=== PATIENT | female | born 1970 | race African-American/Black ===

== ENCOUNTER → 2016-03-31 | Outpatient (CLI) | payer OTHER ==
[~2016-03-31] VITALS: Ht 154.9 cm; Wt 52.2 kg
[~2016-03-31] MED LIST: AMIT25TA PO; AMLO10TA2 PO; AMLO10TAB; CALC500T49 PO; FENO160T10 PO; FERR325T; FLUT1POW2; HYDR200T3 PO; KAPIDEX; LIDOCAINE 2% INJ 100 MG/5 ML SDV (FOR ANES.) As Ordered ONE; LISI-538 PO; MELO7.5S PO; MELO7.5T6 PO; METO-209 PO; METO50TA4; MOBI7.5T10 PO; MOTR200T44 PO; MULT1TAB10 PO; MULTIVIT; NABU500T; NORT10CA2; NS 1,000 ML IV SCH; OMEP40CA2 PO; PERC5TAB6 PO; PREVMIS; PROPOFOL 200 MG/20 ML VIAL As Ordered ONE; SIMV20TA2; SIMV40TA2 PO; VITMTA PO; VOLT1GEL; VOLT1GEL24 TD; ZOCO20TA PO; fentaNYL 100 MCG/2 ML INJECTION (J3010) As Ordered ONE
--- NOTE | 2016-03-31 13:34 | ROOR ---
Patient Name: Maribeth Devi Procedure Date: 03/31/2016 1:20 PM Date of : 1970 Age: 45 Room: [facility] Gender: Female Note Status: Finalized Procedure: Upper GI endoscopy Indications: Heartburn Providers: Oswaldo Rosenberg MD Referring MD: GUNNAR GARVIN DO Requesting Provider: Medicines: Monitored Anesthesia Care Complications: No immediate complications. Procedure: Pre-Anesthesia Assessment: - The heart rate, respiratory rate, oxygen saturations, blood pressure, adequacy of pulmonary ventilation, and response to care were monitored throughout the procedure. The Endoscope was introduced through the mouth, and advanced to the second part of duodenum. The upper GI endoscopy was accomplished without difficulty. The patient tolerated the procedure well. Findings: The Z-line was regular and was found 35 cm from the incisors. No other significant abnormalities were identified in a careful examination of the stomach. The exam of the duodenum was otherwise normal. Impression: - Z-line regular, 35 cm from the incisors. - No specimens collected. - The examination was otherwise normal. Recommendation: - Patient has a contact number available for emergencies. The signs and symptoms of potential delayed complications were discussed with the patient. Return to normal activities tomorrow. Written discharge instructions were provided to the patient. - Discharge patient to home. - Follow an antireflux regimen. - Continue present medications. - Return to referring physician. - The findings and recommendations were discussed with the patient's family. Oswaldo Rosenberg MD Oswaldo Rosenberg MD 03/31/2016 1:34:30 PM This report has been signed electronically. Number of Addenda: 0 Note Initiated On: 03/31/2016 1:20 PM Estimated Blood Loss: Estimated blood loss: none.
--- NOTE | 2016-03-31 13:47 | ROOR ---
Patient Name: Maribeth Devi Procedure Date: 03/31/2016 1:21 PM Date of : 1970 Age: 45 Room: [facility] Gender: Female Note Status: Finalized Procedure: Colonoscopy to Cecum Indications: Abdominal pain in the left lower quadrant Providers: Oswaldo Rosenberg MD Referring MD: GUNNAR GARVIN DO Requesting Provider: Medicines: Monitored Anesthesia Care Complications: No immediate complications. Procedure: Pre-Anesthesia Assessment: - The heart rate, respiratory rate, oxygen saturations, blood pressure, adequacy of pulmonary ventilation, and response to care were monitored throughout the procedure. The Colonoscope was introduced through the anus and advanced to the cecum, identified by appendiceal orifice and ileocecal valve. The colonoscopy was performed without difficulty. The patient tolerated the procedure well. The quality of the bowel preparation was excellent. Findings: The perianal and digital rectal examinations were normal. Non-bleeding internal hemorrhoids were found during retroflexion. The hemorrhoids were small and Grade I (internal hemorrhoids that do not prolapse). No other significant abnormalities were identified in a careful examination of the remainder of the colon. The exam was otherwise without abnormality on direct and retroflexion views. Impression: - Non-bleeding internal hemorrhoids. - The examination was otherwise normal on direct and retroflexion views. - No specimens collected. - The exam was otherwise normal to the cecum. Recommendation: - Patient has a contact number available for emergencies. The signs and symptoms of potential delayed complications were discussed with the patient. Return to normal activities tomorrow. Written discharge instructions were provided to the patient. - High fiber diet. - Discharge patient to home. - Continue present medications. - Repeat colonoscopy in 10 years for screening purposes. - Return to referring physician. - The findings and recommendations were discussed with the patient's family. Oswaldo Rosenberg MD Oswaldo Rosenberg MD 03/31/2016 1:46:23 PM This report has been signed electronically. Number of Addenda: 0 Note Initiated On: 03/31/2016 1:21 PM Estimated Blood Loss: Estimated blood loss: none.
[2016-03-31 14:07] VITALS: BP 150/102
== END | disposition home or self-care (01) ==
LOC: M OPP 11:01
PROVIDERS: ATTEND Internal Medicine Gastroenterology
DX: R10.32 Left lower quadrant pain (principal); K64.0 First degree hemorrhoids; R12 Heartburn; I10 Essential (primary) hypertension; E78.00 Pure hypercholesterolemia, unspecified; D64.9 Anemia, unspecified; M19.90 Unspecified osteoarthritis, unspecified site; Q87.1 Congenital malformation syndromes predominantly associated with short stature; Z97.4 Presence of external hearing-aid; Z79.899 Other long term (current) drug therapy; Z79.51 Long term (current) use of inhaled steroids; Z91.040 Latex allergy status
CPT/HCPCS: 43235; 45378; 99156; 99157; J3010

== ENCOUNTER → 2016-12-21 | Outpatient (CLI) | payer OTHER ==
[~2016-12-21] MED LIST changes: -LIDOCAINE 2% INJ 100 MG/5 ML SDV (FOR ANES.) As Ordered ONE; -MELO7.5T6 PO; +MELO7.5T7 PO; -METO-209 PO; +METO1TAB33 PO; +MOBI4TAB PO; -MOBI7.5T10 PO; -NS 1,000 ML IV SCH; +PERC5TAB12 PO; -PERC5TAB6 PO; -PROPOFOL 200 MG/20 ML VIAL As Ordered ONE; +VOLT1GEL15 TD; -VOLT1GEL24 TD; -fentaNYL 100 MCG/2 ML INJECTION (J3010) As Ordered ONE
[2016-12-21 18:09] LABS: BASO % 0.2 % (0.0-1.0); EOS % 0.2 % (0.0-3.0); IMMATURE GRANULOCYTE % 0.8 % (0-0); LYMPH # 1.5 10^3/uL (1.5-4.5); MEAN CORPUSCULAR HEMOGLOBIN 32.8 pg (27.0-33.0); MEAN CORPUSCULAR HGB CONC 33.9 g/dl (32.0-36.5); MEAN CORPUSCULAR VOLUME 96.6 fl (80.0-96.0); MONO # 0.9 10^3/uL (0.0-0.8); MONO % 8.9 % (0.0-5.0); NEUTROPHILS # 7.9 10^3/uL (1.8-7.7); NEUTROPHILS % 75.9 % (36.0-66.0); PLATELET COUNT, AUTOMATED 342 10^3/uL (150-450); RED CELL DISTRIBUTION WIDTH 12.7 % (11.5-14.5); WHITE BLOOD COUNT 10.4 10^3/uL (4.0-10.0)
[2016-12-21 18:31] LABS: ERYTHROCYTE SEDIMENTATION RATE 4 mm/hr (0-20)
[2016-12-21 18:47] LABS: ALKALINE PHOSPHATASE 55 U/L (45-117); ALT/SGPT 27 U/L (12-78); ANION GAP 6 MEQ/L (8-16); AST/SGOT 14 U/L (15-37); BILIRUBIN,TOTAL 0.3 MG/DL (0.2-1.0); BLOOD UREA NITROGEN 26 MG/DL (7-18); CALCIUM LEVEL 9.5 MG/DL (8.5-10.1); CARBON DIOXIDE LEVEL 32 MEQ/L (21-32); CHLORIDE LEVEL 101 MEQ/L (98-107); CREATININE FOR GFR 0.91 MG/DL (0.55-1.02); GLOMERULAR FILTRATION RATE > 60.0 (>58); GLUCOSE, FASTING 97 MG/DL (70-105); POTASSIUM SERUM 4.2 MEQ/L (3.5-5.1); SODIUM LEVEL 139 MEQ/L (136-145)
[2016-12-23 14:17] LABS: SJOGREN'S ANTI SS-A >8.0 AI (0.0-0.9); SJOGREN'S ANTI SS-B <0.2 AI (0.0-0.9)
== END ==
LOC: M LAB 16:59
PROVIDERS: ATTEND Internal Medicine Rheumatology
DX: R76.8 Other specified abnormal immunological findings in serum (principal)

== ENCOUNTER → 2017-02-10 | Outpatient (CLI) | payer OTHER ==
--- NOTE | 2017-02-10 15:08 | REPMRS ---
Patient History The patient states she had a clinical breast exam in 01/2017. No known family history of cancer. Digital Woman Screen Mammo: February 10, 2017 - Exam #: [id number] Bilateral CC and MLO view(s) were taken. Technologist: Floridalma Barroso, Technologist Prior study comparison: August 15, 2013, digital woman screen mammo performed at [facility]. August 10, 2012, digital woman screen mammo performed at [facility] to [facility]. November 15, 2011, bilateral digital mammo screening bilat, performed at [facility]. FINDINGS: The breast tissue is heterogeneously dense. This may lower the sensitivity of mammography. There is a moderate amount of heterogeneously dense fibroglandular tissue which is fairly symmetric. There is no interval development of dominant mass, architectural distortion, or clustered microcalcification typical of malignancy. There has been no change in the appearance of the mammogram from the prior studies. ASSESSMENT: BI-RADS/ACR category 1 mammogram. Negative. Recommendation Routine screening mammogram of both breasts in 1 year (for women over age 40). This mammogram was interpreted with the aid of an FDA-approved computer-aided dectection system. Electronically Signed By: Jeromy Hutchinson MD 02/10/17 0975
== END ==
LOC: M WHC 13:26
PROVIDERS: ATTEND Nurse Practitioner Women's Health
DX: Z12.31 Encounter for screening mammogram for malignant neoplasm of breast (principal)

== ENCOUNTER → 2017-11-29 | Outpatient (CLI) | payer OTHER ==
[2017-11-29 16:26] LABS: BASO % 0.7 % (0.0-1.0); EOS # 0.1 10^3/uL (0.0-0.50); EOS % 2.3 % (0.0-3.0); HEMATOCRIT 42.4 % (36.0-47.0); HEMOGLOBIN 14.7 g/dl (12.0-15.5); IMMATURE GRANULOCYTE % 0.2 % (0-3.0); LYMPH # 1.6 10^3/uL (1.5-4.5); MEAN CORPUSCULAR HEMOGLOBIN 32.9 pg (27.0-33.0); MEAN CORPUSCULAR HGB CONC 34.7 g/dl (32.0-36.5); MEAN CORPUSCULAR VOLUME 94.9 fl (80.0-96.0); MONO # 0.5 10^3/uL (0.0-0.8); MONO % 8.1 % (0.0-5.0); NEUTROPHILS # 3.4 10^3/uL (1.8-7.7); NEUTROPHILS % 60.7 % (36.0-66.0); PLATELET COUNT, AUTOMATED 346 10^3/uL (150-450); RED BLOOD COUNT 4.47 10^6/uL (4.00-5.40); RED CELL DISTRIBUTION WIDTH 12.5 % (11.5-14.5); WHITE BLOOD COUNT 5.7 10^3/uL (4.0-10.0)
[2017-11-29 16:47] LABS: ALBUMIN 4.7 GM/DL (3.2-5.2); ALBUMIN/GLOBULIN RATIO 1.31 (1.00-1.93); ALKALINE PHOSPHATASE 75 U/L (45-117); ALT/SGPT 56 U/L (12-78); ANION GAP 7 MEQ/L (8-16); AST/SGOT 36 U/L (7-37); BILIRUBIN,TOTAL 0.3 MG/DL (0.2-1.0); BLOOD UREA NITROGEN 13 MG/DL (7-18); CALCIUM LEVEL 9.9 MG/DL (8.5-10.1); CARBON DIOXIDE LEVEL 31 MEQ/L (21-32); CHLORIDE LEVEL 104 MEQ/L (98-107); CREATININE FOR GFR 0.68 MG/DL (0.55-1.30); GLOMERULAR FILTRATION RATE > 60.0 (>58); GLUCOSE, FASTING 107 MG/DL (70-100); POTASSIUM SERUM 3.7 MEQ/L (3.5-5.1); SODIUM LEVEL 142 MEQ/L (136-145); TOTAL PROTEIN 8.3 GM/DL (6.4-8.2)
[2017-11-29 16:49] LABS: SLIDE REVIEW Report; SOURCE PERIPHERAL SMEAR
[2017-11-29 16:50] LABS: REASON FOR REVIEW OTHER
== END ==
LOC: M LAB 15:45
DX: R10.812 Left upper quadrant abdominal tenderness (principal)
CPT/HCPCS: 80053

== ENCOUNTER 2017-12-01 04:10 | Emergency (ER) | payer OTHER ==
[2017-12-01 04:39] LABS: BASO % 0.7 % (0.0-1.0); EOS # 0.2 10^3/uL (0.0-0.50); EOS % 3.5 % (0.0-3.0); HEMATOCRIT 42.3 % (36.0-47.0); HEMOGLOBIN 14.6 g/dl (12.0-15.5); IMMATURE GRANULOCYTE % 0.2 % (0-3.0); LYMPH # 1.5 10^3/uL (1.5-4.5); LYMPH % 32.2 % (24.0-44.0); MEAN CORPUSCULAR HEMOGLOBIN 32.7 pg (27.0-33.0); MEAN CORPUSCULAR HGB CONC 34.5 g/dl (32.0-36.5); MEAN CORPUSCULAR VOLUME 94.8 fl (80.0-96.0); MONO # 0.5 10^3/uL (0.0-0.8); MONO % 10.1 % (0.0-5.0); NEUTROPHILS # 2.4 10^3/uL (1.8-7.7); NEUTROPHILS % 53.3 % (36.0-66.0); PLATELET COUNT, AUTOMATED 323 10^3/uL (150-450); RED BLOOD COUNT 4.46 10^6/uL (4.00-5.40); RED CELL DISTRIBUTION WIDTH 12.5 % (11.5-14.5); WHITE BLOOD COUNT 4.6 10^3/uL (4.0-10.0)
[2017-12-01] MEDS: MORPHINE 4 MG/ML 1ML VIAL/SYRINGE (J2270) IV ×2 (04:48→06:11)
[2017-12-01] MEDS: NS 1,000 ML IV (04:48)
[2017-12-01 04:49] LABS: INR 0.95; PROTHROMBIN TIME 12.8 SECONDS (12.1-14.4)
[2017-12-01 04:50] LABS: PARTIAL THROMBOPLASTIN TIME 24.7 SECONDS (25.4-37.6)
[2017-12-01 05:09] LABS: ALBUMIN 4.3 GM/DL (3.2-5.2); ALKALINE PHOSPHATASE 70 U/L (45-117); ALT/SGPT 46 U/L (12-78); ANION GAP 8 MEQ/L (8-16); AST/SGOT 26 U/L (7-37); BILIRUBIN,DIRECT < 0.1 MG/DL (0.0-0.2); BILIRUBIN,TOTAL 0.4 MG/DL (0.2-1.0); BLOOD UREA NITROGEN 10 MG/DL (7-18); CALCIUM LEVEL 9.4 MG/DL (8.5-10.1); CARBON DIOXIDE LEVEL 31 MEQ/L (21-32); CHLORIDE LEVEL 105 MEQ/L (98-107); CPK CREATINE PHOSPHOKINASE 198 U/L (26-192); CREATININE FOR GFR 0.65 MG/DL (0.55-1.30); GLOMERULAR FILTRATION RATE > 60.0 (>58); GLUCOSE, FASTING 104 MG/DL (70-100); KETONE, URINE AUTO RFX NEGATIVE (NEGATIVE); LEUKOCYTE ESTERASE UR AUTO RFX NEGATIVE (NEGATIVE); LIPASE 151 U/L (73-393); MB/CK RELATIVE INDEX 0.71 (< OR =4); NITRITE, URINE AUTO RFX NEGATIVE (NEGATIVE); POTASSIUM SERUM 3.7 MEQ/L (3.5-5.1); RBC, URINE AUTO RFX 2 /HPF (0-3); SODIUM LEVEL 144 MEQ/L (136-145); SPECIFIC GRAVITY UR AUTO RFX 1.003 (1.002-1.035); SQUAM EPITHELIAL CELL UR AURFX 0 /HPF (0-6); TOTAL PROTEIN 8.2 GM/DL (6.4-8.2); TROPONIN I < 0.02 NG/ML (< 0.10); WBC, URINE AUTO RFX 0 /HPF (0-3)
[2017-12-01] MEDS ORDERED: ISOVUE-370 76% 100ML VIAL (Q9967) As Ordered (05:28)
== END 2017-12-01 07:24 | disposition home or self-care (01) ==
LOC: M ED 04:10
DX: R10.9 Unspecified abdominal pain (principal); R19.7 Diarrhea, unspecified; I10 Essential (primary) hypertension; K21.9 Gastro-esophageal reflux disease without esophagitis; E78.5 Hyperlipidemia, unspecified; M19.90 Unspecified osteoarthritis, unspecified site; Z79.899 Other long term (current) drug therapy; Z91.040 Latex allergy status
CPT/HCPCS: J2270

== ENCOUNTER 2018-01-23 09:27 | Day surgery (SDC) | payer OTHER ==
[2018-01-23] MEDS ORDERED: PROPOFOL 200 MG/20 ML VIAL As Ordered (10:59)
[2018-01-23] MEDS ORDERED: LIDOCAINE 2% INJ 100 MG/5 ML SDV (FOR ANES.) As Ordered (10:59)
[2018-01-23] MEDS ORDERED: fentaNYL 100 MCG/2 ML INJECTION (J3010) As Ordered (11:21)
[2018-01-23] MEDS: NS 1,000 ML IV (12:15)
== END 2018-01-23 12:05 | disposition home or self-care (01) ==
LOC: M OPP 09:27
DX: R12 Heartburn (principal); K44.9 Diaphragmatic hernia without obstruction or gangrene; I10 Essential (primary) hypertension; E78.00 Pure hypercholesterolemia, unspecified; Z91.040 Latex allergy status; Z79.899 Other long term (current) drug therapy
CPT/HCPCS: 43239

== ENCOUNTER → 2018-02-13 | Outpatient (REF) | payer OTHER ==
[~2018-02-13] MED LIST changes: +ALEV220T26 PO; -AMLO10TA2 PO; +AMLO10TA4 PO; +IBUP200C25 PO; +NEXI20CA PO; +SIMV20TA2 PO; +SYST1SOL OU; +VITA100067 PO; +XIID5DRO OP
[2018-02-13 16:43] LABS: FREE T4 1.1 NG/DL (0.76-1.46); THYROID STIMULATING HORMONE 1.14 uIU/ML (0.358-3.740)
== END ==
LOC: M LABDRAW1 15:57
PROVIDERS: ATTEND Nurse Practitioner Family
DX: E04.2 Nontoxic multinodular goiter (principal)

== ENCOUNTER → 2018-02-15 | Outpatient (CLI) | payer OTHER ==
[2018-02-15 14:38] LABS: ALT/SGPT 32 U/L (12-78); BILIRUBIN,DIRECT < 0.1 MG/DL (0.0-0.2); BILIRUBIN,TOTAL 0.2 MG/DL (0.2-1.0); TOTAL PROTEIN 7.8 GM/DL (6.4-8.2)
== END ==
LOC: M LAB 13:30
PROVIDERS: ATTEND Internal Medicine Gastroenterology
DX: R93.3 Abnormal findings on diagnostic imaging of other parts of digestive tract (principal)

== ENCOUNTER → 2018-03-06 | Outpatient (CLI) | payer OTHER ==
[~2018-03-06] MED LIST changes: -AMLO10TA4 PO; +AMLO10TA5 PO; +PROHANCE 279.3MG/ML 5ML VIAL (A9576) As Ordered ONE
--- NOTE | 2018-03-06 19:49 | REP ---
MRI abdomen without and with IV gadolinium: History: Abnormal findings in the liver on previous imaging. Comparison CT study is from December 01, 2017. MR technique: Axial and coronal T1 and T2-weighted scans were obtained including spin echo, fast spin echo, diffusion weighted scans, gradient echo, in and [id number], and dynamically acquired post gadolinium enhanced T1 fat sat images. MRI findings: On the CT study. There are two subcentimeter foci of hypervascular enhancement, one in the right lobe near the dome of the liver and the other in the left lobe near the falciform ligament. T2-weighted MR images show no focal liver lesion. Similarly, pre gadolinium-enhanced T1-weighted scan images show no focal liver nodule or mass lesion. Diffusion-weighted scans are unremarkable. In and out of phase images show no abnormal signal intensity in the liver. Dynamically acquired sequential post gadolinium enhanced images are included. On the arterial phase initial postcontrast sequence, there are three foci of hypervascular enhancement in the liver including the two foci seen on CT and a peripheral subcapsular focus in the posterior segment of the right lobe of the liver. This measures 9 mm in greatest diameter and is the largest focus. There is an equivocal fourth area centrally in the anterior segment right lobe. None of these is visible after the arterial phase postcontrast sequence suggesting transient arteriovenous shunting. There is no evidence of lesion in any of these locations on delayed or equilibrium phase images. No abnormal T1 are T2 signal intensity is seen. Impression: There are multiple small subcentimeter foci of arterial phase hypervascularity in the liver with no abnormal T1 and T2-weighted signal intensity corresponding to these areas. There is prompt washout. Findings suggest nonspecific foci of arteriovenous shunting. Followup study in 6 months suggested. Electronically Signed by Michael Hutchinson MD 03/06/2018 07:51 P
== END ==
LOC: M RAD 16:34
PROVIDERS: ATTEND Internal Medicine Gastroenterology
DX: R93.3 Abnormal findings on diagnostic imaging of other parts of digestive tract (principal)
CPT/HCPCS: 74183; A9576

== ENCOUNTER 2018-04-06 07:51 | Day surgery (SDC) | payer OTHER ==
[~2018-04-06] VITALS: Ht 154.9 cm; Wt 53.1 kg
[~2018-04-06 07:51] MED LIST changes: +LIDOCAINE 2% INJ 100 MG/5 ML SDV (FOR ANES.) As Ordered ONE; +NS 1,000 ML IV ONE; -PROHANCE 279.3MG/ML 5ML VIAL (A9576) As Ordered ONE; +PROPOFOL 200 MG/20 ML VIAL As Ordered ONE
--- NOTE | 2018-04-06 09:27 | ROOR ---
Patient Name: Maribeth Devi Procedure Date: 04/06/2018 9:00 AM Date of : 1970 Age: 47 Room: [facility] Gender: Female Note Status: Finalized Procedure: Colonoscopy Indications: Generalized abdominal pain, Constipation Providers: Gabo DURBIN MD Referring MD: GUNNAR GARVIN DO Requesting Provider: Medicines: Monitored Anesthesia Care Complications: No immediate complications. Procedure: Pre-Anesthesia Assessment: - The heart rate, respiratory rate, oxygen saturations, blood pressure, adequacy of pulmonary ventilation, and response to care were monitored throughout the procedure. The Colonoscope was introduced through the anus and advanced to 10 cm into the ileum. The colonoscopy was performed without difficulty. The patient tolerated the procedure well. The quality of the bowel preparation was good. Findings: The perianal and digital rectal examinations were normal. A 4 mm polyp was found in the sigmoid colon. The polyp was sessile. The polyp was removed with a cold snare. Resection and retrieval were complete. Internal hemorrhoids were found during retroflexion. The hemorrhoids were medium-sized. The exam was otherwise without abnormality on direct and retroflexion views. The terminal ileum appeared normal. Impression: - One 4 mm polyp in the sigmoid colon, removed with a cold snare. Resected and retrieved. - Internal hemorrhoids. - The colon examination was otherwise normal on direct and retroflexion views. - The examined portion of the ileum was normal. - Irritable bowel with constipation (IBS-C) suspected Recommendation: - Repeat colonoscopy in 5 years for surveillance. - Use Lactulose at 2 tbsp PO BID. - Telephone endoscopist for pathology results in 2 weeks. - Your MRI of the liver was benign, however radiologist requests a follow up MRI in 6 months. - Return to my office in 6 months. Gabo Duribn MD Gabo DURBIN MD 04/06/2018 9:26:34 AM This report has been signed electronically. Number of Addenda: 0 Note Initiated On: 04/06/2018 9:00 AM Estimated Blood Loss: Estimated blood loss: none.
[2018-04-06 09:40] VITALS: BP 133/87
== END 2018-04-06 09:53 | disposition home or self-care (01) ==
LOC: M OPP 07:51
PROVIDERS: ATTEND Internal Medicine Gastroenterology
DX: D12.5 Benign neoplasm of sigmoid colon (principal); K64.8 Other hemorrhoids; R10.84 Generalized abdominal pain; K59.00 Constipation, unspecified

== ENCOUNTER → 2018-04-27 | Outpatient (CLI) | payer OTHER ==
[~2018-04-27] MED LIST changes: -LIDOCAINE 2% INJ 100 MG/5 ML SDV (FOR ANES.) As Ordered ONE; -NS 1,000 ML IV ONE; -PROPOFOL 200 MG/20 ML VIAL As Ordered ONE
--- NOTE | 2018-04-28 08:40 | REPMRS ---
Patient History The patient states she had a clinical breast exam in 03/2018. Family history of breast cancer at age 55 in paternal aunt. No Hormone Replacement Therapy Digital Woman Screen Mammo: April 27, 2018 - Exam #: [id number] Bilateral CC and MLO view(s) were taken. Technologist: Floridalma Barroso, Technologist Prior study comparison: February 10, 2017, digital woman screen mammo performed at [facility] to [facility]. August 15, 2013, digital woman screen mammo performed at [facility]. August 10, 2012, digital woman screen mammo performed at [facility]. FINDINGS: The breast tissue is heterogeneously dense. This may lower the sensitivity of mammography. There is a moderate amount of heterogeneously dense fibroglandular tissue which is fairly symmetric. There is no interval development of dominant mass, architectural distortion, or clustered microcalcification typical of malignancy. There has been no change in the appearance of the mammogram from the prior studies. 3-D tomosynthesis shows no additional findings. I am informed by the technologist, that after the examination, the patient related that she is able to self express a brownish discharge from the left breast. Also, there is apparently an old scar in the left areolar region which the patient relates to a previous spider bite. Assessment: BI-RADS/ACR category 0 mammogram, Incomplete. Need additonal imaging evaluation and/or prior mammograms for comparison. Recommendation Ultrasound of the left breast. Because of a history of brownish left breast discharge, subareolar sonography should be considered. The mammogram is negative and unchanged . This patient's Lifetime Breast Cancer RIsk is estimated at 11.7 %. This mammogram was interpreted with the aid of an FDA-approved computer-aided dectection system. Electronically Signed By: Jeromy Hutchinson MD 04/27/18 [id number]
== END ==
LOC: M WHC 14:57
PROVIDERS: ATTEND Nurse Practitioner Women's Health
DX: Z12.31 Encounter for screening mammogram for malignant neoplasm of breast (principal)

== ENCOUNTER → 2018-05-08 | Outpatient (CLI) | payer OTHER ==
--- NOTE | 2018-05-08 19:12 | REP ---
LEFT BREAST ULTRASOUND: 05/08/2018. Comparison: Screening mammogram with tomosynthesis 04/27/2018. Clinical history: At her screening mammogram last month she described a history of brownish left nipple discharge. Therefore subareolar sonography was recommended. Family history of breast cancer in a paternal aunt at age 55. She has no personal history. Findings: Sonographic evaluation of the subareolar region of the right breast was performed per request. There are some dilated ducts in the subareolar region. Largest of these is 2.1 mm with others in the 1 mm range but none of them showing any definite filling defects. Impression: 1. BIRADS ACR category 2 benign finding. No sonographic or mammographic evidence of malignancy. Dilated ducts in the retroareolar zone show no filling defects. I do not have detailed history of the discharge. If she has persistent or prominent brownish or bloody discharge, a ductogram would be warranted. In addition, for persistent finding, surgical consultation should be obtained. If the discharge was self-limited and has not recurred, annual followup screening mammogram. Electronically Signed by Chapincito Gruber MD 05/08/2018 08:10 P
== END ==
LOC: M RAD 14:27
PROVIDERS: ATTEND Nurse Practitioner Women's Health
DX: N64.52 Nipple discharge (principal); Z80.3 Family history of malignant neoplasm of breast

== ENCOUNTER → 2018-06-13 | Outpatient (CLI) | payer OTHER ==
--- NOTE | 2018-06-13 16:10 | REP ---
LEFT KNEE, FIVE VIEWS: HISTORY: Effusion. There is no acute fracture or dislocation. The joint spaces are normal in appearance. IMPRESSION: There is no acute fracture or dislocation. Electronically Signed by Nitin Vargas MD 06/13/2018 04:17 P
== END ==
LOC: M RAD 14:40
PROVIDERS: ATTEND Physician Assistant
DX: M25.462 Effusion, left knee (principal)

== ENCOUNTER → 2018-07-26 | Outpatient (CLI) | payer OTHER ==
[~2018-07-26] MED LIST changes: +CONRAY-43 43% 50ML VIAL (Q9960) As Ordered ONE
--- NOTE | 2018-07-26 12:18 | REP ---
CANCELLED LEFT DUCTOGRAM: 07/26/2018. Comparison: Left breast ultrasound 05/08/2018, bilateral screening mammogram 04/27/2018. Clinical history: Ultrasound done because of patient reported left breast brownish discharge following previous mammogram. Procedure: However, today the patient notes that there is (and has been) bilateral discharge that she is able to express readily. During my observation of her compression of the nipple areolar complex, there were at least four ducts expressing greenish fluid on the left and two on the right. She states that she has had bilateral discharge for some time. Therefore, I did not perform a ductogram due to the bilateral nature of this discharge. The retroareolar ultrasound on 05/08/2018 showed ducts without filling defects. Used some Telfa pads to absorb some of the fluid and immediately sent off to the laboratory for cytologic analysis. Impression: 1. BIRADS ACR category 2 benign. Benign findings with no evidence of malignancy on the previous mammogram and left breast ultrasound. The presence of bilateral symmetric greenish nipple discharge which was not bloody or clear to my direct visual inspection warrants no further mammographic workup. Cytologic analysis pending. 2. Recommend followup mammography 1 year. Electronically Signed by Chapincito Gruber MD 07/26/2018 12:10 P
== END ==
LOC: M RAD 10:48
PROVIDERS: ATTEND Nurse Practitioner Women's Health
DX: N64.52 Nipple discharge (principal); Z53.8 Procedure and treatment not carried out for other reasons

== ENCOUNTER → 2018-08-02 | Outpatient (CLI) | payer OTHER ==
[~2018-08-02] MED LIST changes: -CONRAY-43 43% 50ML VIAL (Q9960) As Ordered ONE
--- NOTE | 2018-08-02 18:04 | REP ---
MRI LEFT KNEE: TECHNIQUE: Axial proton density fat saturation, sagittal proton density T2 STIR, water excitation, coronal proton density, proton density fat saturation. There is a complex tear of the posterior horn of the medial meniscus. There is increased signal centrally in the anterior horn of the lateral meniscus which may represent degenerative signal although there may be some fraying of that portion of the meniscus. The cruciate and collateral ligaments are intact. Extensor mechanism is intact. There is mild global chondromalacia with femoral condyles and tibial plateaus more so medially with a more moderate degree of chondromalacia of the anterior central medial femoral condyle with mild subchondral marrow edema. Medial and lateral patellar retinacula are intact. No other abnormal bone marrow signal is seen. There is a suprapatellar plica. There is a mild to moderate joint effusion. There is no popliteal cyst. IMPRESSION: Complex tear posterior horn medial meniscus. There appears to be mucoid degeneration centrally of the anterior horn of the lateral meniscus with possible fraying. Cruciate and collateral ligaments are intact. 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 Mild to moderate joint effusion. Suprapatellar plica. Unreviewed
== END ==
LOC: M RAD 12:04
PROVIDERS: ATTEND Orthopaedic Surgery Sports Medicine
DX: S83.204A Other tear of unspecified meniscus, current injury, left knee, initial encounter (principal); X58.XXXA Exposure to other specified factors, initial encounter; Y92.89 Other specified places as the place of occurrence of the external cause

== ENCOUNTER → 2018-08-08 | Outpatient (REF) | payer OTHER | LOC: M SFHCWAGY 12:54 | PROVIDERS: ATTEND Nurse Practitioner Women's Health | DX: N64.52 Nipple discharge (principal) ==

== ENCOUNTER → 2018-09-13 | Outpatient (CLI) | payer OTHER ==
[~2018-09-13] MED LIST changes: +PROHANCE 279.3MG/ML 15ML VIAL (A9576) As Ordered ONE
--- NOTE | 2018-09-13 14:26 | REP ---
MRI ABDOMEN AND WITH AND WITHOUT CONTRAST: Multiple sequences obtained in the axial and coronal planes prior to and following the intravenous administration of 15 mL ProHance. Comparison made with a prior study 03/06/2018. Comparison also made with CT abdomen with contrast, 12/01/2017. Precontrast images show focal liver lesion once again. On arterial phase post gadolinium images, there is once again, a tiny subcentimeter focus of arterial phase enhancement at the right dome of the liver. This actually appears less prominent than on the prior CT and MRI. A similar focus is seen more inferiorly in the anterior segment of the right lobe and at the same level peripherally in the posterior segment of the right lobe, there is a small linear capsular area of enhancement with a length of about 7 mm. Tiny subcentimeter peripheral focus of enhancement is seen in the lateral segment of the left lobe on image 41 with the arterial phase images. A tiny focus near the falciform ligament in the left lobe of the liver on image 34 also appears less prominent than on prior studies. Again, these are most consistent with areas of arterial venous shunting and appear to be benign. Once again, the spleen, adrenals, pancreas and kidneys are unremarkable and unchanged. I see no adenopathy or free fluid in the abdomen. IMPRESSION: Subtle tiny foci of arterial phase enhancement throughout the liver are either unchanged or less prominent than on the prior MRI and CT examinations. Findings are compatible with benign arterial venous shunting. Electronically Signed by Nam Jimenez MD 09/16/2018 06:28 P
== END ==
LOC: M RAD 10:27
PROVIDERS: ATTEND Internal Medicine Gastroenterology
DX: R93.3 Abnormal findings on diagnostic imaging of other parts of digestive tract (principal)
CPT/HCPCS: 74183; A9576

== ENCOUNTER → 2019-01-13 | Outpatient (CLI) | payer OTHER ==
[~2019-01-13] MED LIST changes: -OMEP40CA2 PO; +OMEP40CA97 PO; -PROHANCE 279.3MG/ML 15ML VIAL (A9576) As Ordered ONE
--- NOTE | 2019-01-13 10:23 | REP ---
Left rib series: Five views including PA chest. History: Contusion of the left ribs. Comparison chest x-ray: January 26, 2016. Findings: PA chest radiograph shows no evidence of pneumothorax or hydrothorax. Mediastinum is not widened. The aorta is slightly tortuous. Heart is not enlarged. Lung trevizo are clear. Multiple views of the left rib cage show no visible rib fracture or bony destructive lesion. Impression: Negative rib series. No acute disease. Electronically Signed by Michael Hutchinson MD 01/13/2019 10:15 A
== END ==
LOC: M WUC 09:46
PROVIDERS: ATTEND Physician Assistant
DX: S20.222A Contusion of left back wall of thorax, initial encounter (principal); S20.221A Contusion of right back wall of thorax, initial encounter; J06.9 Acute upper respiratory infection, unspecified; X58.XXXA Exposure to other specified factors, initial encounter

== ENCOUNTER → 2019-01-16 | Outpatient (REF) | payer OTHER ==
[2019-01-16 16:07] LABS: BASO % 0.7 % (0.0-1.0); EOS # 0.2 10^3/uL (0.0-0.5); EOS % 3.7 % (0.0-3.0); HEMATOCRIT 38.2 % (36.0-47.0); HEMOGLOBIN 12.8 g/dl (12.0-15.5); LYMPH # 1.5 10^3/uL (1.5-5.0); LYMPH % 26.5 % (24.0-44.0); MEAN CORPUSCULAR HEMOGLOBIN 30.8 pg (27.0-33.0); MEAN CORPUSCULAR HGB CONC 33.5 g/dl (32.0-36.5); MEAN CORPUSCULAR VOLUME 91.8 fl (80.0-96.0); MONO # 0.9 10^3/uL (0.0-0.8); MONO % 15.1 % (0.0-5.0); NEUTROPHILS # 3.1 10^3/uL (1.5-8.5); NEUTROPHILS % 53.6 % (36.0-66.0); PLATELET COUNT, AUTOMATED 336 10^3/uL (150-450); RED BLOOD COUNT 4.16 10^6/uL (4.00-5.40); WHITE BLOOD COUNT 5.7 10^3/uL (4.0-10.0)
[2019-01-16 16:47] LABS: ERYTHROCYTE SEDIMENTATION RATE 25 mm/hr (0-20)
== END ==
LOC: M LABDRAW1 15:16
PROVIDERS: ATTEND Physician Assistant Surgical
DX: Z47.89 Encounter for other orthopedic aftercare (principal)

== ENCOUNTER 2019-03-03 10:17 | Emergency (ER) | payer OTHER ==
[~2019-03-03] VITALS: Ht 152.4 cm; Wt 57.7 kg
[~2019-03-03 10:17] MED LIST changes: -SIMV20TA2 PO; +SIMV20TA22 PO; -SIMV40TA2 PO; +SIMV40TA20 PO
[2019-03-03] MEDS ORDERED: NS 1,000 ML IV ONE (10:45)
[2019-03-03] MEDS ORDERED: LORA-674 (10:50)
[2019-03-03] MEDS ORDERED: RIZA10TA58 (10:50)
[2019-03-03] MEDS ORDERED: LEFL1TAB4 (10:50)
[2019-03-03] MEDS ORDERED: HYDR25TAB (10:50)
[2019-03-03] MEDS ORDERED: B-COCAP7 (10:50)
[2019-03-03] MEDS ORDERED: MAG400TA (10:50)
--- NOTE | 2019-03-03 11:30 | REP ---
Chest x-ray: Two views. History: Abdomen pain . Comparison study: January 13, 2019 . Findings: The lungs are well inflated and free of infiltrate. The pleural angles are sharp. The heart size is normal. Pulmonary vasculature is not increased. No significant bony abnormality is seen. Mild tortuosity of the thoracic aorta is seen. Impression: Negative chest x-ray. Electronically Signed by Michael Hutchinson MD 03/03/2019 11:21 A
[2019-03-03 11:36] LABS: BASO % 0.9 % (0.0-1.0); EOS # 0.2 10^3/uL (0.0-0.5); EOS % 3.3 % (0.0-3.0); HEMATOCRIT 40.7 % (36.0-47.0); HEMOGLOBIN 13.3 g/dl (12.0-15.5); LYMPH # 1.2 10^3/uL (1.5-5.0); LYMPH % 27.1 % (24.0-44.0); MEAN CORPUSCULAR HEMOGLOBIN 30.9 pg (27.0-33.0); MEAN CORPUSCULAR HGB CONC 32.7 g/dl (32.0-36.5); MEAN CORPUSCULAR VOLUME 94.4 fl (80.0-96.0); MONO # 0.5 10^3/uL (0.0-0.8); MONO % 11.8 % (0.0-5.0); NEUTROPHILS # 2.6 10^3/uL (1.5-8.5); NEUTROPHILS % 56.7 % (36.0-66.0); PLATELET COUNT, AUTOMATED 297 10^3/uL (150-450); RED BLOOD COUNT 4.31 10^6/uL (4.00-5.40); WHITE BLOOD COUNT 4.5 10^3/uL (4.0-10.0)
[2019-03-03 12:00] LABS: ALBUMIN 3.8 GM/DL (3.2-5.2); ALT/SGPT 38 U/L (12-78); BILIRUBIN,DIRECT 0.2 MG/DL (0.0-0.2); BILIRUBIN,TOTAL 0.6 MG/DL (0.2-1.0); CK-MB VALUE MASS 3.6 NG/ML (<3.6); CPK CREATINE PHOSPHOKINASE 347 U/L (26-192); LIPASE 171 U/L (73-393); MB/CK RELATIVE INDEX 1.04 (< OR =4); TOTAL PROTEIN 7.9 GM/DL (6.4-8.2); TROPONIN I < 0.02 NG/ML (< 0.10)
[2019-03-03] MEDS ORDERED: ISOVUE-370 76% 100ML VIAL (Q9967) As Ordered ONE (12:03)
[2019-03-03] MEDS ORDERED: KETOROLAC 30 MG/ML VIAL (J1885) IV ONE (13:45)
--- NOTE | 2019-03-03 13:48 | REP ---
CT PULMONARY ANGIOGRAM: With IV contrast. HISTORY: Pleuritic chest pain radiating to the back. Rule out pulmonary embolus. COMPARISON STUDIES: Comparison chest CT study December 01, 2017. CONTRAST DOSE: 75 mL of Isovue [address] TECHNIQUE: Helical scanning is acquired and overlapping 1.5 mm and contiguous 3 mm axial images are reformatted. In addition, maximum intensity projection and multiplanar re-formation images are generated in sagittal and coronal imaging projections. CT PULMONARY ANGIOGRAPHIC FINDINGS: There is good opacification of the pulmonary arterial tree and there is no CT evidence of pulmonary embolus. No evidence of aortic aneurysm or dissection is seen. No pleural or pericardial effusion is appreciated. No infiltrate is appreciated in the lung trevizo. Maximal intensity projection images show no additional abnormality. No filling defect or vessel cutoff is seen. There is minimal linear plate-like atelectasis in the right middle lobe. No bony destructive lesion is seen. The adrenal glands are normal. Visualized upper abdominal structures are unremarkable. IMPRESSION: No CT evidence of pulmonary embolus. Minimal plate-like atelectasis right middle lobe. Otherwise no acute disease. Electronically Signed by Michael Hutchinson MD 03/03/2019 04:09 P
--- NOTE | 2019-03-03 13:49 | REP ---
CT ABDOMEN AND PELVIS WITH IV BUT WITHOUT ORAL CONTRAST: HISTORY: Pleuritic chest pain. Diffuse abdominal pain. Tenderness to palpation. CT CONTRAST DOSE: 100 mL of intravenous Isovue 370. CT FINDINGS: Preliminary air conditioning coil assembler view shows a normal bowel gas pattern. The liver and the spleen are normal in size, homogeneous in texture. No adrenal lesion is seen. No abnormality is noted in the pancreas or the gallbladder. Kidneys enhance symmetrically and are morphologically intact. No hydronephrosis or renal calculus disease is seen. No abdominal wall defect is observed. Normal appendix is seen in the right lower quadrant behind the cecum. Small and large bowel loops are unremarkable. The uterus is surgically absent. No abdominal wall defect is seen. No bony destructive lesion is appreciated. IMPRESSION: No acute abdominal or pelvic abnormality. Status post hysterectomy. Electronically Signed by Michael Hutchinson MD 03/03/2019 04:09 P
[2019-03-03 14:37] LABS: INFLUENZA A AMPLIFICATION NEGATIVE (NEGATIVE); INFLUENZA B AMPLIFICATION NEGATIVE (NEGATIVE)
[2019-03-03 14:42] VITALS: BP 161/92
[2019-03-03] MEDS ORDERED: MOBI4TAB PO (14:48)
[2019-03-03] MEDS ORDERED: ACETAMINOPHEN TAB 650MG DOSE (2X325MG) PO ONE (15:00)
--- NOTE | 2019-03-04 05:52 | ECGEPIP ---
[facility] - ED Test Date: 2019-03-03 Pat Name: PARUL ALEXANDER Department: Room: - Gender: Female Mobile Nurse: ct : 1970 Requested By: NATALIE Linda PA-C Order Number: [id number] Reading MD: Gen Lagunas Measurements Intervals [place] Rate: 75 P: 58 NE: 191 QRS: 9 QRSD: 80 T: -8 QT: 380 QTc: 425 Interpretive Statements SINUS RHYTHM POSSIBLE LEFT ATRIAL ENLARGEMENT VOLTAGE CRITERIA FOR LVH NSTTW ABNORMALITIES SIMILAR TO 12/01/17 Electronically Signed on 03-04-2019 5:52:16 EST by Gen Lagunas
== END 2019-03-03 15:22 | disposition home or self-care (01) ==
LOC: M ED 10:17
DX: E87.6 Hypokalemia (principal); J98.11 Atelectasis; R10.9 Unspecified abdominal pain; R19.7 Diarrhea, unspecified; R11.2 Nausea with vomiting, unspecified; R94.31 Abnormal electrocardiogram [ECG] [EKG]; R51 Headache; I10 Essential (primary) hypertension; E78.5 Hyperlipidemia, unspecified; K21.9 Gastro-esophageal reflux disease without esophagitis; M35.00 Sjogren syndrome, unspecified; Z90.710 Acquired absence of both cervix and uterus; Z91.040 Latex allergy status; Z79.1 Long term (current) use of non-steroidal anti-inflammatories (NSAID); Z79.84 Long term (current) use of oral hypoglycemic drugs; Z79.899 Other long term (current) drug therapy
CPT/HCPCS: 71046; 71275; 74177; 80047; 80076; 81001; 82550; 82553; 83605; 83690; 85025; 87507; 87631; 93005; 96361; 96374; 99284; J1885; Q9967

== ENCOUNTER → 2019-05-01 | Outpatient (CLI) | payer OTHER ==
[~2019-05-01] MED LIST changes: +B-COCAP7; +HYDR25TAB; +LEFL1TAB4; +LORA-674; +MAG400TA; +RIZA10TA58
--- NOTE | 2019-05-01 16:35 | REPMRS ---
Patient History The patient states she had a clinical breast exam in April 2019. Family history of breast cancer at age 55 in paternal aunt. No Hormone Replacement Therapy Digital Woman Screen Mammo: May 01, 2019 - Exam #: [id number] Bilateral CC and MLO view(s) were taken. Technologist: Mindy Castle, Technologist Prior study comparison: April 27, 2018, bilateral digital woman screen mammo performed at [facility]. February 10, 2017, digital woman screen mammo performed at [facility]. August 15, 2013, digital woman screen mammo performed at [facility]. FINDINGS: The breast tissue is heterogeneously dense. This may lower the sensitivity of mammography. There are too stable benign nodular opacities projecting in the upper outer quadrant on the right, unchanged from prior studies. There is a moderate amount of heterogeneously dense fibroglandular tissue which is fairly symmetric. There is no interval development of dominant mass, architectural distortion, or grouped microcalcification typical of malignancy. There has been no change in the appearance of the mammogram from the prior studies. 3-D tomosynthesis shows no additional findings. Assessment: BI-RADS/ACR category 2 mammogram. Benign Findings. Recommendation Routine screening mammogram of both breasts in 1 year (for women over age 40). This patient's Lifetime Breast Cancer RIsk is estimated at 11.6 %. This mammogram was interpreted with the aid of an FDA-approved computer-aided dectection system. Electronically Signed By: Jreomy Hutchinson MD 05/01/19 5028
== END ==
LOC: M WHC 14:54
PROVIDERS: ATTEND Nurse Practitioner Women's Health
DX: Z12.31 Encounter for screening mammogram for malignant neoplasm of breast (principal); D24.1 Benign neoplasm of right breast

== ENCOUNTER → 2019-09-07 | Outpatient (CLI) | payer OTHER ==
[~2019-09-07] MED LIST changes: -AMLO10TA5 PO; +AMLO1TAB25 PO; -B-COCAP7; +B-COCAP7 PO; -LORA-674; +LORA-674 PO; -MAG400TA; +MAG400TA PO; +METF500T13 PO; +MULTCAP PO; -RIZA10TA58; +RIZA10TA58 PO
== END ==
LOC: M LABSMTC 10:03
PROVIDERS: ATTEND Anesthesiology
DX: Z01.818 Encounter for other preprocedural examination (principal); Z11.59 Encounter for screening for other viral diseases
CPT/HCPCS: C9803; U0003

== ENCOUNTER → 2019-11-19 | Outpatient (CLI) | payer OTHER ==
[~2019-11-19] MED LIST changes: +E-Z-GAS II EFFERVESCENT PACKET (SODIUM BICARB./CITRIC ACID/SIMETHICONE) As Ordered ONE; +E-Z-HD 98% w/w 340GM SUSP BTL As Ordered ONE; +E-Z-PAQUE 96% w/w SUSP 176GM BTL As Ordered ONE
--- NOTE | 2019-11-28 07:48 | REP ---
ESOPHAGRAM AIR CONTRAST The procedure was performed under the direct supervision of Dr. Jimenez. The images were reviewed with Dr. Jimenez. A single view PA chest x-ray is submitted as a weld inspector film. There is no change compared to a previous chest x-ray performed on 03/03/2019. Liquid barium and gas-producing granules were given in the erect position, as well as liquid barium in the prone oblique position in order to perform a double-contrast esophagram examination. The oral and pharyngeal stages of deglutition are unremarkable. Esophageal transport is prompt and efficient, and there is no esophagitis, stricture, mucosal ring, or hiatal hernia. There is gastroesophageal reflux demonstrated to the level of the thoracic inlet. IMPRESSION: There is gastroesophageal reflux demonstrated to the level of the thoracic inlet. Otherwise, unremarkable double contrast esophagram examination. 0.5 minutes of fluoroscopy time was utilized for this procedure. [facility] CENTERPatricio
== END ==
LOC: M RAD 07:22
PROVIDERS: ATTEND Nurse Practitioner
DX: R13.10 Dysphagia, unspecified (principal); K21.0 Gastro-esophageal reflux disease with esophagitis

== ENCOUNTER → 2019-11-26 | Outpatient (CLI) | payer OTHER ==
[~2019-11-26] MED LIST changes: -E-Z-GAS II EFFERVESCENT PACKET (SODIUM BICARB./CITRIC ACID/SIMETHICONE) As Ordered ONE; -E-Z-HD 98% w/w 340GM SUSP BTL As Ordered ONE; -E-Z-PAQUE 96% w/w SUSP 176GM BTL As Ordered ONE
[2019-11-26 10:59] LABS: BASO % 0.5 % (0.0-1.0); EOS # 0.2 10^3/uL (0.0-0.5); EOS % 2.8 % (0.0-3.0); HEMATOCRIT 40.4 % (36.0-47.0); HEMOGLOBIN 13.2 g/dl (12.0-15.5); LYMPH # 1.3 10^3/uL (1.5-5.0); MEAN CORPUSCULAR HEMOGLOBIN 30.8 pg (27.0-33.0); MEAN CORPUSCULAR HGB CONC 32.7 g/dl (32.0-36.5); MEAN CORPUSCULAR VOLUME 94.2 fl (80.0-96.0); MONO # 0.6 10^3/uL (0.0-0.8); MONO % 10.4 % (0.0-5.0); NEUTROPHILS # 3.6 10^3/uL (1.5-8.5); NEUTROPHILS % 63.1 % (36.0-66.0); PLATELET COUNT, AUTOMATED 324 10^3/uL (150-450); RED BLOOD COUNT 4.29 10^6/uL (4.00-5.40); WHITE BLOOD COUNT 5.7 10^3/uL (4.0-10.0)
[2019-11-26 11:26] LABS: ALT/SGPT 75 U/L (12-78); BILIRUBIN,TOTAL 0.5 MG/DL (0.2-1.0); BLOOD UREA NITROGEN 11 MG/DL (7-18); CALCIUM LEVEL 10.3 MG/DL (8.5-10.1); CARBON DIOXIDE LEVEL 31 MEQ/L (21-32); CHLORIDE LEVEL 101 MEQ/L (98-107); CREATININE FOR GFR 0.77 MG/DL (0.55-1.30); GLOMERULAR FILTRATION RATE > 60.0 (>51); GLUCOSE, FASTING 117 MG/DL (70-100); POTASSIUM SERUM 3.2 MEQ/L (3.5-5.1); SODIUM LEVEL 138 MEQ/L (136-145); TOTAL PROTEIN 7.8 GM/DL (6.4-8.2)
[2019-11-26 12:23] LABS: ERYTHROCYTE SEDIMENTATION RATE 11 mm/hr (0-30)
[2019-11-27 15:09] LABS: ANTI DOUBLE STRAND-DNA AB <1 IU/mL (0-9); ANTINUCLEAR ANTIBODIES DIRECT Positive (Negative); RNP ANTIBODIES <0.2 AI (0.0-0.9); SJOGREN'S ANTI SS-A >8.0 AI (0.0-0.9); SJOGREN'S ANTI SS-B <0.2 AI (0.0-0.9); SMITH ANTIBODIES <0.2 AI (0.0-0.9)
== END ==
LOC: M LAB 09:17
PROVIDERS: ATTEND Internal Medicine Rheumatology
DX: M35.00 Sjogren syndrome, unspecified (principal); R76.8 Other specified abnormal immunological findings in serum; M17.0 Bilateral primary osteoarthritis of knee

== ENCOUNTER → 2019-11-26 | Outpatient (CLI) | payer OTHER ==
[2019-11-26 10:59] LABS: BASO # 0.1 10^3/uL (0.0-0.2); BASO % 0.9 % (0.0-1.0); EOS # 0.2 10^3/uL (0.0-0.5); EOS % 2.9 % (0.0-3.0); HEMATOCRIT 39.7 % (36.0-47.0); LYMPH # 1.3 10^3/uL (1.5-5.0); LYMPH % 23.5 % (24.0-44.0); MEAN CORPUSCULAR HEMOGLOBIN 30.7 pg (27.0-33.0); MEAN CORPUSCULAR HGB CONC 32.7 g/dl (32.0-36.5); MEAN CORPUSCULAR VOLUME 93.9 fl (80.0-96.0); MONO # 0.6 10^3/uL (0.0-0.8); MONO % 10.9 % (0.0-5.0); NEUTROPHILS # 3.4 10^3/uL (1.5-8.5); NEUTROPHILS % 61.6 % (36.0-66.0); PLATELET COUNT, AUTOMATED 329 10^3/uL (150-450); RED BLOOD COUNT 4.23 10^6/uL (4.00-5.40); WHITE BLOOD COUNT 5.5 10^3/uL (4.0-10.0)
[2019-11-26 11:21] LABS: BLOOD UREA NITROGEN 11 MG/DL (7-18); CALCIUM LEVEL 9.9 MG/DL (8.5-10.1); CARBON DIOXIDE LEVEL 33 MEQ/L (21-32); CHLORIDE LEVEL 102 MEQ/L (98-107); CREATININE FOR GFR 0.82 MG/DL (0.55-1.30); GLOMERULAR FILTRATION RATE > 60.0 (>51); GLUCOSE, FASTING 112 MG/DL (70-100); POTASSIUM SERUM 3.2 MEQ/L (3.5-5.1); SODIUM LEVEL 140 MEQ/L (136-145)
== END ==
LOC: M LAB 09:12
PROVIDERS: ATTEND Family Medicine
DX: Z01.818 Encounter for other preprocedural examination (principal)

== ENCOUNTER → 2019-12-27 | Outpatient (CLI) | payer OTHER ==
--- NOTE | 2019-12-27 14:39 | REP ---
INDICATION: PAIN IN RIGHT WRIST PT AT FILE ROOM. COMPARISON: MRI 08/23/2019 from [facility]. TECHNIQUE: Multiple sequences obtained in the axial, coronal and sagittal planes. FINDINGS: Triangular fibrocartilage: There is a linear tear of the triangular fibrocartilage complex at its insertion onto the radius. Scapholunate and lunatotriquetral ligaments: Intact. Flexor and extensor tendons: Intact. No tenosynovitis. Carpal tunnel region:There is again some degree of anterior bowing of the flexor retinaculum and increased signal in the median nerve unchanged since the prior exam. No ganglion cyst is seen. Joint fluid: No effusion. Distal radioulnar joint: Mild fluid present. Bone marrow: No edema or occult fracture. There is small subchondral cyst in the distal 1st metacarpal. IMPRESSION: Linear tear of the triangular fibrocartilage complex at its insertion onto the radius. Stable anterior bowing of the flexor retinaculum and increased signal in the median nerve. Mild fluid in the distal radioulnar joint. <Electronically signed by Nam Jimenez > 12/27/19 2043
== END ==
LOC: M RAD 12:19
PROVIDERS: ATTEND Orthopaedic Surgery
DX: M25.531 Pain in right wrist (principal)

== ENCOUNTER → 2020-03-05 | Outpatient (CLI) | payer OTHER ==
[~2020-03-05] MED LIST changes: +ATOR40TA75 PO; +D 50CAP2 PO; -HYDR25TAB; +HYDR25TAB PO; -LEFL1TAB4; +LEFL1TAB4 PO; +LUBR0.5D OP; +OMEP1CAP73 PO; +THERTAB52 PO
== END ==
LOC: M LABSMTC 11:27
PROVIDERS: ATTEND Anesthesiology
DX: Z01.812 Encounter for preprocedural laboratory examination (principal); Z20.822 Contact with and (suspected) exposure to COVID-19

== ENCOUNTER 2020-03-10 12:14 | Day surgery (SDC) | payer OTHER ==
[~2020-03-10] VITALS: Ht 154.9 cm; Wt 54.2 kg
[~2020-03-10 12:14] MED LIST changes: -AMIT25TA PO; +AMIT25TA17 PO; +NS 1,000 ML IV ONE
[2020-03-10] MEDS ORDERED: fentaNYL 100 MCG/2 ML INJECTION (J3010) As Ordered ONE (13:22)
--- NOTE | 2020-03-10 14:40 | ROOR ---
Patient Name: Maribeth Devi Procedure Date: 03/10/2020 2:18 PM Date of : 1970 Age: 49 Room: [facility] Gender: Female Note Status: Finalized Procedure: Upper GI endoscopy Indications: Oropharyngeal phase dysphagia, Esophageal dysphagia, Suspected esophageal reflux Providers: Gabo DURBIN MD Referring MD: GUNNAR GARVIN DO Requesting Provider: Medicines: Monitored Anesthesia Care Complications: No immediate complications. Procedure: Pre-Anesthesia Assessment: - The heart rate, respiratory rate, oxygen saturations, blood pressure, adequacy of pulmonary ventilation, and response to care were monitored throughout the procedure. The Endoscope was introduced through the mouth, and advanced to the second part of duodenum. The upper GI endoscopy was accomplished without difficulty. The patient tolerated the procedure well. Findings: The examined esophagus was normal. This was biopsied with a cold forceps for evaluation of eosinophilic esophagitis. The scope was withdrawn. Dilation was performed with a Davis dilator with mild resistance at 50 Fr. The dilation site was examined and showed no change. A small amount of food (residue) was found in the gastric body. The entire examined stomach was normal. The examined duodenum was normal. Impression: - Normal esophagus. Biopsied. Dilated. - A small amount of food or medication/pills (residue) in the stomach. - Normal stomach. - Normal examined duodenum. Recommendation: - Observe patient's clinical course. - Gastroparesis diet: - Eat smaller, more frequent meals throughout the day. - Low fat diet. - Liquid/soft foods are tolerated better than solid foods. - Low fiber/well cooked vegetables are tolerated better than high fiber/fibrous foods/raw vegetables. - Avoid medications that inhibit gastric/intestinal motility such as narcotic medications. - Continue present medications. Procedure Code(s): --- Professional --- 94252, Esophagogastroduodenoscopy, flexible, transoral; with biopsy, single or multiple 46615, Dilation of esophagus, by unguided sound or bougie, single or multiple passes Diagnosis Code(s): --- Professional --- R13.14, Dysphagia, pharyngoesophageal phase R13.12, Dysphagia, oropharyngeal phase CPT copyright 2019 [employer]. All rights reserved. The codes documented in this report are preliminary and upon professor of chemistry review may be revised to meet current compliance requirements. Gabo Durbin MD Gabo DURBIN MD 03/10/2020 2:40:28 PM Electronically signed by Gabo DURBIN MD Number of Addenda: 0 Note Initiated On: 03/10/2020 2:18 PM Estimated Blood Loss: Estimated blood loss: none.
[2020-03-10 15:14] VITALS: BP 140/80
== END 2020-03-10 15:19 | disposition home or self-care (01) ==
LOC: M OPP 12:14
PROVIDERS: ATTEND Internal Medicine Gastroenterology
DX: R13.12 Dysphagia, oropharyngeal phase (principal); R13.14 Dysphagia, pharyngoesophageal phase; K21.9 Gastro-esophageal reflux disease without esophagitis; D13.0 Benign neoplasm of esophagus; I10 Essential (primary) hypertension; E78.5 Hyperlipidemia, unspecified; E11.9 Type 2 diabetes mellitus without complications; R12 Heartburn; M19.90 Unspecified osteoarthritis, unspecified site; G43.909 Migraine, unspecified, not intractable, without status migrainosus; L93.0 Discoid lupus erythematosus; B19.10 Unspecified viral hepatitis B without hepatic coma; F41.9 Anxiety disorder, unspecified; Z91.040 Latex allergy status; Z91.041 Radiographic dye allergy status; Z79.84 Long term (current) use of oral hypoglycemic drugs; Z79.899 Other long term (current) drug therapy; Z82.49 Family history of ischemic heart disease and other diseases of the circulatory system; Z82.69 Family history of other diseases of the musculoskeletal system and connective tissue; Z82.3 Family history of stroke; Z80.3 Family history of malignant neoplasm of breast
CPT/HCPCS: 43239; 43450; 88305; J3010

== ENCOUNTER → 2020-05-05 | Outpatient (CLI) | payer OTHER ==
[~2020-05-05] MED LIST changes: +HYDR-3490 PO; -HYDR25TAB PO; -LISI-538 PO; +LISI20TA33 PO; -MAG400TA PO; +MAGN400T35 PO; -NS 1,000 ML IV ONE
--- NOTE | 2020-05-06 07:20 | REPMRS ---
Patient History The patient states she had a clinical breast exam in April 2020. Family history of breast cancer at age 55 in paternal aunt. No Hormone Replacement Therapy Digital Woman Screen Mammo: May 05, 2020 - Exam #: [id number] Bilateral CC and MLO view(s) were taken. Technologist: RT Nico Prior study comparison: May 01, 2019, bilateral digital woman screen mammo performed at [facility]. April 27, 2018, bilateral digital woman screen mammo performed at [facility]. February 10, 2017, digital woman screen mammo performed at [facility]. FINDINGS: The breast tissue is heterogeneously dense. This may lower the sensitivity of mammography. The Volpara volumetric breast density category is: C. There is a moderate amount of heterogeneously dense fibroglandular tissue which is fairly symmetric. There is no interval development of dominant mass, architectural distortion, or grouped microcalcification typical of malignancy. There has been no change in the appearance of the mammogram from the prior studies. 3-D tomosynthesis shows no additional findings. Assessment: BI-RADS/ACR category 1 mammogram. Negative Mammogram. Recommendation Routine screening mammogram of both breasts in 1 year (for women over age 40). This patient's [facility] Lifetime Breast Cancer RIsk is estimated at 11.4 %. This mammogram was interpreted with the aid of an FDA-approved computer-aided dectection system. Electronically Signed By: Jeromy Hutchinson MD 05/05/20 0373
== END ==
LOC: M WHC 14:12
PROVIDERS: ATTEND Nurse Practitioner Women's Health
DX: Z12.31 Encounter for screening mammogram for malignant neoplasm of breast (principal)

== ENCOUNTER → 2020-07-07 | Outpatient (CLI) | payer OTHER ==
--- NOTE | 2020-07-07 13:31 | REP ---
INDICATION: PAIN. COMPARISON: None. TECHNIQUE: AP, lateral, open mouth views of the cervical spine. FINDINGS: Alignment and lordosis maintained. No acute fracture/compression injury or subluxation. Moderate focal degenerative change at C6-7 includes endplate sclerosis with anterior osteophytosis and minimal disc space narrowing. IMPRESSION: Moderate focal degenerative changes at C6-7. <Electronically signed by Jared Casas > 07/07/20 [id number]
--- NOTE | 2020-07-07 13:33 | REP ---
INDICATION: PAIN. COMPARISON: None. TECHNIQUE: Internal rotation, external rotation, axillary and Y-view of the left and right shoulder. FINDINGS: Left shoulder demonstrates mild cortical irregularity at the acromioclavicular joint. The subacromial space is normal. Glenohumeral joint is normal. No periarticular calcifications or loose bodies are identified. No acute fracture or dislocation. Right shoulder demonstrates cortical irregularity at the acromioclavicular joint. The subacromial space is normal. Glenohumeral joint is normal. No periarticular calcifications or loose bodies are identified. No acute fracture or dislocation. IMPRESSION: Mild degenerative changes at the bilateral acromioclavicular joints. <Electronically signed by Jared Casas > 07/07/20 [id number]
== END ==
LOC: M SOG 10:49
PROVIDERS: ATTEND Orthopaedic Surgery Sports Medicine
DX: M75.41 Impingement syndrome of right shoulder (principal); M75.42 Impingement syndrome of left shoulder; M50.323 Other cervical disc degeneration at C6-C7 level

== ENCOUNTER 2020-07-10 12:22 | Emergency (ER) | payer OTHER ==
[~2020-07-10] VITALS: Ht 165.1 cm; Wt 51.1 kg
[2020-07-10] MEDS ORDERED: LEFL1TAB4 PO (13:19)
[2020-07-10] MEDS ORDERED: OMEP-218 PO (13:19)
[2020-07-10] MEDS ORDERED: DICL1GEL3 TOP (13:19)
[2020-07-10] MEDS ORDERED: MELO7.5T35 PO (13:19)
[2020-07-10] MEDS ORDERED: IBUP200C25 PO (13:19)
[2020-07-10] MEDS ORDERED: ACET-910 PO (13:19)
[2020-07-10] MEDS ORDERED: NS 1,000 ML IV ONE (14:35)
--- NOTE | 2020-07-10 15:08 | REPVR ---
PROCEDURE INFORMATION: Exam: CT Head Without Contrast Exam date and time: 07/10/2020 2:35 PM Age: 50 years old Clinical indication: Pain; Headache; Additional info: Headache x 5 wks TECHNIQUE: Imaging protocol: Computed tomography of the head without contrast. Radiation optimization: All CT scans at this facility use at least one of these dose optimization techniques: automated exposure control; mA and/or kV adjustment per patient size (includes targeted exams where dose is matched to clinical indication); or iterative reconstruction. COMPARISON: No relevant prior studies available. FINDINGS: Brain: Normal. No hemorrhage. Unremarkable white matter. No mass effect. Cerebral ventricles: No ventriculomegaly. Bones/joints: Unremarkable. No acute fracture. Paranasal sinuses: Visualized sinuses are unremarkable. No fluid levels. Mastoid air cells: Visualized mastoid air cells are well aerated. Soft tissues: Unremarkable. IMPRESSION: No acute intracranial abnormality. Electronically signed by: Arnoldo Renteria On 07/10/2020 15:08:17 PM
--- NOTE | 2020-07-10 15:11 | REPVR ---
PROCEDURE INFORMATION: Exam: CT Cervical Spine Without Contrast Exam date and time: 07/10/2020 2:35 PM Age: 50 years old Clinical indication: Pain; Other: Headache; Additional info: Headache x 5 wks TECHNIQUE: Imaging protocol: Computed tomography images of the cervical spine without contrast. Radiation optimization: All CT scans at this facility use at least one of these dose optimization techniques: automated exposure control; mA and/or kV adjustment per patient size (includes targeted exams where dose is matched to clinical indication); or iterative reconstruction. COMPARISON: CR SPINE CERVICAL AP/LAT 07/07/2020 10:53 AM FINDINGS: Bones/joints: There is a reversal of the normal lordosis, related to positioning or spasm. Discs/Spinal canal/Neural foramina: There is ossification of the posterior longitudinal ligament (OPLL) at the posterior surfaces of C5, C6, and C7 with spinal canal dimensions 10, 8.8, and 8.5 mm. There is no nerve root compression. Thyroid: The thyroid gland is normal. Lungs: The visualized portions of the lung apices are normal. Soft tissues: Unremarkable. IMPRESSION: 1. There is a reversal of the normal lordosis, related to positioning or spasm. 2. There is ossification of the posterior longitudinal ligament (OPLL) at the posterior surfaces of C5, C6, and C7 with spinal canal dimensions 10, 8.8, and 8.5 mm. 3. There is no nerve root compression. Electronically signed by: Arnoldo Renteria On 07/10/2020 15:11:30 PM
[2020-07-10 16:44] LABS: BASO % 0.7 % (0.0-1.0); EOS # 0.1 10^3/uL (0.0-0.5); EOS % 3.2 % (0.0-3.0); HEMATOCRIT 44.5 % (36.0-47.0); HEMOGLOBIN 14.6 g/dl (12.0-15.5); LYMPH # 1.7 10^3/uL (1.5-5.0); LYMPH % 38.5 % (24.0-44.0); MEAN CORPUSCULAR HEMOGLOBIN 30.9 pg (27.0-33.0); MEAN CORPUSCULAR HGB CONC 32.8 g/dl (32.0-36.5); MEAN CORPUSCULAR VOLUME 94.3 fl (80.0-96.0); MONO # 0.5 10^3/uL (0.0-0.8); MONO % 12.2 % (2.0-8.0); RED BLOOD COUNT 4.72 10^6/uL (4.00-5.40); WHITE BLOOD COUNT 4.4 10^3/uL (4.0-10.0)
[2020-07-10 17:07] LABS: BLOOD UREA NITROGEN 15 MG/DL (7-18); CALCIUM LEVEL 10.3 MG/DL (8.5-10.1); CARBON DIOXIDE LEVEL 26 MEQ/L (21-32); CHLORIDE LEVEL 106 MEQ/L (98-107); CK-MB VALUE MASS < 1.0 NG/ML (<3.6); CPK CREATINE PHOSPHOKINASE 164 U/L (26-192); CREATININE FOR GFR 0.82 MG/DL (0.55-1.30); FREE T4 1.06 NG/DL (0.76-1.46); GLOMERULAR FILTRATION RATE > 60.0 (>51); GLUCOSE, FASTING 88 MG/DL (70-100); MAGNESIUM LEVEL 2.1 MG/DL (1.8-2.4); MB/CK RELATIVE INDEX 0.61 (< OR =4); POTASSIUM SERUM 3.5 MEQ/L (3.5-5.1); SODIUM LEVEL 139 MEQ/L (136-145); TROPONIN I < 0.02 NG/ML (< 0.10)
[2020-07-10 17:24] LABS: INR 0.92; PARTIAL THROMBOPLASTIN TIME 22.6 SECONDS (24.2-38.5); PROTHROMBIN TIME 12.6 SECONDS (12.5-14.3)
[2020-07-10 17:27] LABS: D-DIMER QUANT 532.78 ng/ml (<500)
[2020-07-10 17:39] LABS: NEUTROPHILS % 45.2 % (36.0-66.0)
[2020-07-10] MEDS ORDERED: MAG SULF 1GM/100ML (MAG RUN) 1 GM in IV 1 EA IV ONE (18:00)
[2020-07-10] MEDS ORDERED: dexameTHASONE 20MG/5ML VIAL (J1100 PER 1MG) IV ONE (18:00)
--- NOTE | 2020-07-10 21:20 | REPVR ---
PROCEDURE INFORMATION: Exam: MR Cervical Spine Without Contrast Exam date and time: 07/10/2020 8:44 PM Age: 50 years old Clinical indication: Neck pain; Additional info: Headache x 5 weeks TECHNIQUE: Imaging protocol: Multiplanar magnetic resonance images of the cervical spine without contrast. COMPARISON: CT Spine,cervical w/o contrast 07/10/2020 2:48 PM FINDINGS: Vertebrae: Reversal of cervical lordosis. Spinal cord: Normal signal. No cord compression. C2-C3: No significant disc disease. No significant spinal stenosis. C3-C4: No significant disc disease. No significant spinal stenosis. C4-C5: No significant disc disease. No significant spinal stenosis. C5-C6: Diffusely bulging annulus C5-C6 effaces ventral subarachnoid space without cord impingement. There is mild to moderate foraminal narrowing on the left. C6-C7: Diffusely bulging annulus and right paracentral disc protrusion C6-C7 effaces the ventral subarachnoid space with moderate right cornelius cord impingement. There is moderate to severe bilateral foraminal stenosis. C7-T1: No significant disc disease. No significant spinal stenosis. Soft tissues: Unremarkable. Vertebral arteries: Expected flow voids in the vertebral arteries. IMPRESSION: 1. Degenerative changes with a diffusely bulging annulus at C5-C6 without cord impingement. There is a diffusely bulging annulus at C6-C7 with a right posterior paracentral disc protrusion resulting in moderate right cornelius cord impingement. 2. There is mild to moderate foraminal narrowing on the left at C5-C6 and bilateral moderate to severe foraminal narrowing at C6-C7. Electronically signed by: Isaias Munguia On 07/10/2020 21:19:28 PM
--- NOTE | 2020-07-10 21:21 | REPVR ---
PROCEDURE INFORMATION: Exam: MR Head Without Contrast Exam date and time: 07/10/2020 8:44 PM Age: 50 years old Clinical indication: Pain; Headache; Migraine; Aura effect not specified; Does not respond to medication; With migrainosus (>72 hrs & severe); Additional info: Headache x 5 weeks TECHNIQUE: Imaging protocol: MR of the head without contrast. COMPARISON: CT Head without contrast 07/10/2020 2:48 PM FINDINGS: Brain: Scattered foci T2 lengthening in the subcortical, centrum semiovale periventricular white matter. Finding is nonspecific but can be seen in patients with a history of migraine headaches. Otherwise unremarkable. Cerebral ventricles: Normal. No ventriculomegaly. Bones/joints: Unremarkable. Paranasal sinuses: Normal as visualized. No acute sinusitis. Mastoid air cells: Normal as visualized. No mastoid effusion. Orbital cavity: Unremarkable. Soft tissues: Unremarkable. IMPRESSION: 1. Scattered foci T2 lengthening in the subcortical, centrum semiovale periventricular white matter. Finding is nonspecific but can be seen in patients with a history of migraine headaches. 2. Otherwise unremarkable. Electronically signed by: Isaias Munguia On 07/10/2020 21:21:32 PM
--- NOTE | 2020-07-10 21:24 | REPVR ---
PROCEDURE INFORMATION: Exam: MRA Head Without Contrast; Arteriography Exam date and time: 07/10/2020 8:44 PM Age: 50 years old Clinical indication: Pain; Headache; Additional info: Headache x 5 weeks TECHNIQUE: Imaging protocol: Magnetic resonance angiography head without contrast. Exam focused on the arteries. COMPARISON: CT Head without contrast 07/10/2020 2:48 PM FINDINGS: ANTERIOR CIRCULATION: Right internal carotid artery: Intracranial segment is patent with no significant stenosis. No aneurysm. Right middle cerebral artery: No occlusion or significant stenosis. No aneurysm. Right anterior cerebral artery: No occlusion or significant stenosis. No aneurysm. Left internal carotid artery: Intracranial segment is patent with no significant stenosis. No aneurysm. Left middle cerebral artery: No occlusion or significant stenosis. No aneurysm. Left anterior cerebral artery: No occlusion or significant stenosis. No aneurysm. POSTERIOR CIRCULATION: Right vertebral artery: No occlusion or significant stenosis. No aneurysm. Left vertebral artery: No occlusion or significant stenosis. No aneurysm. Basilar artery: No occlusion or significant stenosis. No aneurysm. Right posterior cerebral artery: No occlusion or significant stenosis. No aneurysm. Left posterior cerebral artery: No occlusion or significant stenosis. No aneurysm. IMPRESSION: No stenosis or occlusion. Electronically signed by: Isaias Munguia On 07/10/2020 21:23:56 PM
[2020-07-10 21:52] VITALS: BP 141/93
[2020-07-10] MEDS ORDERED: PRED20TA PO (22:21)
--- NOTE | 2020-07-11 04:57 | ECGEPIP ---
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
--- NOTE | 2020-07-11 07:25 | ED PDOC ---
Post-Departure Follow-Up radiology report faxed to Yovana Shaffer MD July 11, 2020 07:25
== END 2020-07-10 22:45 | disposition home or self-care (01) ==
LOC: M ED 12:22
DX: R51.9 Headache, unspecified (principal); M50.222 Other cervical disc displacement at C5-C6 level; M50.223 Other cervical disc displacement at C6-C7 level; M48.02 Spinal stenosis, cervical region; R07.9 Chest pain, unspecified; E11.9 Type 2 diabetes mellitus without complications; I10 Essential (primary) hypertension; K21.9 Gastro-esophageal reflux disease without esophagitis; D64.9 Anemia, unspecified; Z91.040 Latex allergy status; Z79.899 Other long term (current) drug therapy
CPT/HCPCS: 70450; 70544; 70551; 72125; 72141; 80048; 82550; 82553; 83735; 84439; 84443; 85025; 85379; 85610; 85730; 93005; 96361; 96365; 96375; 99284; J1100; J3475

== ENCOUNTER → 2020-12-08 | Outpatient (CLI) | payer MEDICAID, OTHER ==
[~2020-12-08] MED LIST changes: +ACET-910 PO; +BARIUM SULFATE 700 MG TABLET (E-Z-DISK) As Ordered ONE; +DICL1GEL3 TOP; +E-Z-PAQUE 96% w/w SUSP 176GM BTL As Ordered ONE; +MELO7.5T35 PO; +OMEP-218 PO; +OMEP40CA4 PO; -OMEP40CA97 PO; +PRED20TA PO; +VARIBAR NECTAR 40% w/v 240ML SUSP BTL As Ordered ONE; +VARIBAR PUDDING 40% w/v 230ML TUBE As Ordered ONE
--- NOTE | 2020-12-08 16:38 | REP ---
INDICATION: R47.02 DYSPHASIA. COMPARISON: None. TECHNIQUE: The procedure was performed by TONIO Pandya, under the direct supervision of Dr. Jimenez. The procedure was performed with Shazia Alves from speech pathology present. 5 ml aliquots of thin, pudding, mixed fruit, soft food, and hard food consistency barium was administered. FINDINGS: No aspiration or penetration was visualized during the exam. The detailed report of this examination will be provided by speech pathology. IMPRESSION: No aspiration or penetration was visualized, a detailed report will be provided by speech pathology. 2.0 minutes of fluoroscopy time was utilized for this procedure. Some fluoroscopic images are performed with last image hold technology. These images require no additional radiation <Electronically signed by Trini Hameed > 12/08/20 1242 <Electronically signed by Nam Jimenez > 12/08/20 [id number]
== END ==
LOC: M RAD 09:37
PROVIDERS: ATTEND Otolaryngology
DX: R47.02 Dysphasia (principal)

== ENCOUNTER → 2021-03-19 | Outpatient (CLI) | payer OTHER ==
[~2021-03-19] MED LIST changes: -BARIUM SULFATE 700 MG TABLET (E-Z-DISK) As Ordered ONE; +E-Z-GAS II EFFERVESCENT PACKET (SODIUM BICARB./CITRIC ACID/SIMETHICONE) As Ordered ONE; +E-Z-HD 98% w/w 340GM SUSP BTL As Ordered ONE; +OMEP-173 PO; -OMEP-218 PO; -VARIBAR NECTAR 40% w/v 240ML SUSP BTL As Ordered ONE; -VARIBAR PUDDING 40% w/v 230ML TUBE As Ordered ONE
== END ==
LOC: M RAD 09:11
PROVIDERS: ATTEND Physician Assistant Medical
DX: R10.13 Epigastric pain (principal); R13.10 Dysphagia, unspecified; K21.9 Gastro-esophageal reflux disease without esophagitis

== ENCOUNTER → 2021-04-01 | Outpatient (CLI) | payer OTHER ==
[~2021-04-01] MED LIST changes: -E-Z-GAS II EFFERVESCENT PACKET (SODIUM BICARB./CITRIC ACID/SIMETHICONE) As Ordered ONE; -E-Z-HD 98% w/w 340GM SUSP BTL As Ordered ONE; -E-Z-PAQUE 96% w/w SUSP 176GM BTL As Ordered ONE
== END ==
LOC: M RAD 08:06
PROVIDERS: ATTEND Physician Assistant Medical
DX: K30 Functional dyspepsia (principal)
CPT/HCPCS: 78264; A9541

== ENCOUNTER → 2021-05-06 | Outpatient (CLI) | payer OTHER | LOC: M WHC 04-21 10:29 | PROVIDERS: ATTEND Internal Medicine | DX: Z12.31 Encounter for screening mammogram for malignant neoplasm of breast (principal) ==

== ENCOUNTER → 2021-08-12 | Outpatient (CLI) | payer MEDICARE | LOC: M RAD 11:59 | PROVIDERS: ATTEND Physician Assistant Medical | DX: R10.10 Upper abdominal pain, unspecified (principal); R19.8 Other specified symptoms and signs involving the digestive system and abdomen; Z90.79 Acquired absence of other genital organ(s) ==

== ENCOUNTER → 2021-09-23 | Outpatient (REF) | payer MEDICARE, OTHER | LOC: M SFHCWAGY 12:56 | PROVIDERS: ATTEND Nurse Practitioner Family | DX: Z12.4 Encounter for screening for malignant neoplasm of cervix (principal); Z77.9 Other contact with and (suspected) exposures hazardous to health ==

== ENCOUNTER → 2021-12-21 | Outpatient (CLI) | payer MEDICAID, MEDICARE, OTHER ==
[~2021-12-21] MED LIST changes: +SIMV-253 PO; -ZOCO20TA PO
== END ==
LOC: M LABSMTC 10:43
PROVIDERS: ATTEND Anesthesiology
DX: Z01.812 Encounter for preprocedural laboratory examination (principal); Z11.52 Encounter for screening for COVID-19

== ENCOUNTER 2021-12-25 10:31 | Day surgery (SDC) | payer MEDICAID, MEDICARE ==
[~2021-12-25] VITALS: Ht 149.9 cm; Wt 53.9 kg
[~2021-12-25 10:31] MED LIST changes: +NS 1,000 ML IV ONE
[2021-12-25] MEDS ORDERED: fentaNYL 100 MCG/2 ML INJECTION As Ordered ONE (12:00)
[2021-12-25] MEDS ORDERED: LIDOCAINE 2% 100MG/5ML SDV (FOR ANES.) As Ordered ONE (12:09)
[2021-12-25] MEDS ORDERED: propofoL 200 MG/20 ML VIAL As Ordered ONE (12:09)
[2021-12-25 12:30] VITALS: BP 132/77
== END 2021-12-25 12:39 | disposition home or self-care (01) ==
LOC: M OPP 10:31
PROVIDERS: ATTEND Internal Medicine Gastroenterology
DX: K31.84 Gastroparesis (principal); D49.0 Neoplasm of unspecified behavior of digestive system; R10.13 Epigastric pain; Z79.02 Long term (current) use of antithrombotics/antiplatelets; Z79.899 Other long term (current) drug therapy; Z91.040 Latex allergy status; Z91.041 Radiographic dye allergy status; K21.9 Gastro-esophageal reflux disease without esophagitis; M32.9 Systemic lupus erythematosus, unspecified; F41.9 Anxiety disorder, unspecified; B19.10 Unspecified viral hepatitis B without hepatic coma; I10 Essential (primary) hypertension; E78.00 Pure hypercholesterolemia, unspecified; E11.9 Type 2 diabetes mellitus without complications; K44.9 Diaphragmatic hernia without obstruction or gangrene; M35.00 Sjogren syndrome, unspecified; G43.909 Migraine, unspecified, not intractable, without status migrainosus
CPT/HCPCS: 43239; 88305; J3010

== ENCOUNTER → 2022-01-27 | Outpatient (CLI) | payer MEDICARE ==
[~2022-01-27] MED LIST changes: -NS 1,000 ML IV ONE
== END ==
LOC: M RAD 07:44
PROVIDERS: ATTEND Internal Medicine Gastroenterology
DX: R10.9 Unspecified abdominal pain (principal)

== ENCOUNTER → 2022-02-24 | Outpatient (CLI) | payer MEDICARE | LOC: M RAD 07:39 | PROVIDERS: ATTEND Internal Medicine Gastroenterology | DX: K82.8 Other specified diseases of gallbladder (principal); R11.0 Nausea; R10.13 Epigastric pain | CPT/HCPCS: 78227; A9537 ==

== ENCOUNTER → 2022-05-19 | Outpatient (CLI) | payer MEDICARE ==
[~2022-05-19] MED LIST changes: +HYDR50TAB PO; +LISI40TA4 PO; +POTA1TAB23 PO; +SPIR-10 PO
[2022-05-19 16:14] LABS: BLOOD UREA NITROGEN 25 MG/DL (9-23); CALCIUM LEVEL 10.3 MG/DL (8.5-10.1); CARBON DIOXIDE LEVEL 29 MMOL/L (20-31); CHLORIDE LEVEL 98 MMOL/L (98-107); CREATININE FOR GFR 1.19 MG/DL (0.55-1.30); GLOMERULAR FILTRATION RATE > 60.0 (>51); GLUCOSE, FASTING 104 MG/DL (60-100); POTASSIUM SERUM 4.3 MMOL/L (3.5-5.1); SODIUM LEVEL 132 MMOL/L (136-145)
== END ==
LOC: M PLALAB 13:16
PROVIDERS: ATTEND Physician Assistant
DX: I10 Essential (primary) hypertension (principal)

== ENCOUNTER → 2022-05-27 | Outpatient (CLI) | payer MEDICARE, OTHER | LOC: M LABSMTC 09:24 | PROVIDERS: ATTEND Anesthesiology | DX: Z01.818 Encounter for other preprocedural examination (principal); Z11.52 Encounter for screening for COVID-19 ==

== ENCOUNTER 2022-05-31 06:56 | Day surgery (SDC) | payer MEDICARE, OTHER ==
[~2022-05-31] VITALS: Ht 149.9 cm; Wt 49.4 kg
[~2022-05-31 06:56] MED LIST changes: +NS 1,000 ML IV ONE
[2022-05-31] MEDS ORDERED: LIDOCAINE 2% 100MG/5ML SDV (FOR ANES.) As Ordered ONE (08:20)
[2022-05-31] MEDS ORDERED: propofoL 500 MG/50 ML VIAL As Ordered ONE (08:20)
[2022-05-31] MEDS ORDERED: fentaNYL 100 MCG/2 ML INJECTION As Ordered ONE (08:20)
[2022-05-31] MEDS ORDERED: ePHEDrine SULFATE 25 MG/5 ML(5MG/ML) SYRINGE As Ordered ONE (08:37)
[2022-05-31 09:26] VITALS: BP 112/70
== END 2022-05-31 09:32 | disposition home or self-care (01) ==
LOC: M OPP 06:56
PROVIDERS: ATTEND Internal Medicine Gastroenterology
DX: K64.8 Other hemorrhoids (principal); D13.1 Benign neoplasm of stomach; B19.10 Unspecified viral hepatitis B without hepatic coma; M35.00 Sjogren syndrome, unspecified; M32.9 Systemic lupus erythematosus, unspecified; Z79.02 Long term (current) use of antithrombotics/antiplatelets; Z79.899 Other long term (current) drug therapy; Z91.040 Latex allergy status; Z91.041 Radiographic dye allergy status; Z80.3 Family history of malignant neoplasm of breast
CPT/HCPCS: 43239; 45378; 88305; J3010

== ENCOUNTER 2022-07-27 11:37 | Emergency (ER) | payer MEDICARE, OTHER ==
[~2022-07-27] VITALS: Ht 152.4 cm; Wt 49.5 kg
[~2022-07-27 11:37] MED LIST changes: -NS 1,000 ML IV ONE
[2022-07-27 12:42] LABS: BASO % 0.5 % (0.0-1.0); EOS # 0.2 10^3/uL (0.0-0.5); EOS % 3.2 % (0.0-3.0); HEMOGLOBIN 12.1 g/dl (12.0-15.5); LYMPH # 1.4 10^3/uL (1.5-5.0); MEAN CORPUSCULAR HEMOGLOBIN 32.4 pg (27.0-33.0); MEAN CORPUSCULAR HGB CONC 33.6 g/dl (32.0-36.5); MEAN CORPUSCULAR VOLUME 96.3 fl (80.0-96.0); MONO # 0.6 10^3/uL (0.0-0.8); NEUTROPHILS # 3.5 10^3/uL (1.5-8.5); NEUTROPHILS % 60.9 % (36.0-66.0); PLATELET COUNT, AUTOMATED 321 10^3/uL (150-450); RED BLOOD COUNT 3.74 10^6/uL (4.00-5.40); WHITE BLOOD COUNT 5.7 10^3/uL (4.0-10.0)
[2022-07-27] MEDS ORDERED: NS 1,000 ML IV ONE (13:10)
[2022-07-27 13:14] LABS: BLOOD UREA NITROGEN 36 MG/DL (9-23); CALCIUM LEVEL 10.2 MG/DL (8.5-10.1); CARBON DIOXIDE LEVEL 25 MMOL/L (20-31); CHLORIDE LEVEL 98 MMOL/L (98-107); CK-MB VALUE MASS < 1.0 NG/ML (<3.6); CPK CREATINE PHOSPHOKINASE 272 U/L (34-145); CREATININE FOR GFR 1.72 MG/DL (0.55-1.30); GLUCOSE, FASTING 100 MG/DL (60-100); MB/CK RELATIVE INDEX 0.36 (< OR =4); SODIUM LEVEL 133 MMOL/L (136-145)
[2022-07-27] MEDS ORDERED: ISOVUE-370 76% 100ML VIAL As Ordered ONE (14:05)
[2022-07-27 14:09] LABS: CK-MB VALUE MASS < 1.0 NG/ML (<3.6)
[2022-07-27 14:15] LABS: CPK CREATINE PHOSPHOKINASE 207 U/L (34-145); MB/CK RELATIVE INDEX 0.48 (< OR =4)
[2022-07-27] MEDS ORDERED: ASPIRIN 81MG CHEW TABLET PO ONE (20:15)
[2022-07-27] MEDS ORDERED: ASPI81TA26 PO (20:58)
[2022-07-27 21:11] VITALS: BP 113/74
== END 2022-07-27 21:47 | disposition home or self-care (01) ==
LOC: M ED 11:37
DX: R07.9 Chest pain, unspecified (principal); I72.0 Aneurysm of carotid artery; G43.909 Migraine, unspecified, not intractable, without status migrainosus; K21.9 Gastro-esophageal reflux disease without esophagitis; Z91.040 Latex allergy status; Z91.048 Other nonmedicinal substance allergy status; Z79.811 Long term (current) use of aromatase inhibitors; Z79.82 Long term (current) use of aspirin; Z79.899 Other long term (current) drug therapy
CPT/HCPCS: 70450; 70498; 70551; 71045; 71275; 80048; 82550; 82553; 84132; 84484; 85025; 87635; 93005; 96360; 96361; 99284; Q9967

== ENCOUNTER → 2022-08-04 | Outpatient (CLI) | payer MEDICARE, OTHER ==
[~2022-08-04] MED LIST changes: +ASPI81TA26 PO
== END ==
LOC: M WHC 09:44
PROVIDERS: ATTEND Internal Medicine
DX: Z12.31 Encounter for screening mammogram for malignant neoplasm of breast (principal)

== ENCOUNTER → 2022-09-29 | Outpatient (REF) | payer MEDICARE, OTHER, MEDICAID ==
[~2022-09-29] MED LIST changes: -AMIT25TA17 PO; +AMIT25TA19 PO; +DICL100G10 TOP; -DICL1GEL3 TOP; -HYDR200T3 PO; +HYDR200T46 PO
== END ==
LOC: M SFHCWAGY 17:28
PROVIDERS: ATTEND Nurse Practitioner Family
DX: Z12.4 Encounter for screening for malignant neoplasm of cervix (principal)
CPT/HCPCS: 87624; G0123

== ENCOUNTER 2022-10-21 17:39 | Emergency (ER) | payer MEDICARE, OTHER ==
[~2022-10-21] VITALS: Ht 152.4 cm; Wt 48.9 kg
[2022-10-21] MEDS ORDERED: NS 1,000 ML IV ONE (21:30)
[2022-10-21] MEDS ORDERED: dexAMETHasone 20MG/5ML VIAL IV ONE (21:30)
[2022-10-21] MEDS ORDERED: diphenhydrAMINE 50MG/ML VIAL IV ONE (21:30)
[2022-10-21] MEDS ORDERED: METOCLOPRAMIDE INJ 10MG/2ML VIAL IV ONE (21:30)
[2022-10-21 22:31] LABS: BASO # 0.1 10^3/uL (0.0-0.2); BASO % 1.1 % (0.0-1.0); EOS # 0.1 10^3/uL (0.0-0.5); EOS % 2.3 % (0.0-3.0); HEMATOCRIT 34.2 % (36.0-47.0); HEMOGLOBIN 11.7 g/dl (12.0-15.5); LYMPH # 1.7 10^3/uL (1.5-5.0); LYMPH % 30.3 % (24.0-44.0); MEAN CORPUSCULAR HEMOGLOBIN 32.1 pg (27.0-33.0); MEAN CORPUSCULAR HGB CONC 34.2 g/dl (32.0-36.5); MEAN CORPUSCULAR VOLUME 93.7 fl (80.0-96.0); MONO # 0.8 10^3/uL (0.0-0.8); MONO % 13.6 % (2.0-8.0); NEUTROPHILS % 52.5 % (36.0-66.0); PLATELET COUNT, AUTOMATED 280 10^3/uL (150-450); RED BLOOD COUNT 3.65 10^6/uL (4.00-5.40); WHITE BLOOD COUNT 5.7 10^3/uL (4.0-10.0)
[2022-10-21 22:47] LABS: ERYTHROCYTE SEDIMENTATION RATE 16 mm/hr (0-30)
[2022-10-21 23:13] LABS: BLOOD UREA NITROGEN 16 MG/DL (9-23); CALCIUM LEVEL 9.6 MG/DL (8.5-10.1); CARBON DIOXIDE LEVEL 28 MMOL/L (20-31); CHLORIDE LEVEL 95 MMOL/L (98-107); CREATININE FOR GFR 1.07 MG/DL (0.55-1.30); GLOMERULAR FILTRATION RATE > 60.0 (>51); GLUCOSE, FASTING 87 MG/DL (60-100); POTASSIUM SERUM 4.2 MMOL/L (3.5-5.1); SODIUM LEVEL 131 MMOL/L (136-145)
[2022-10-21 23:14] LABS: C REACTIVE PROTEIN QUANTITATIV < 0.40 MG/DL (<1.0)
[2022-10-22 01:25] VITALS: BP 116/73; TEMP 98.3; O2SAT 99
== END 2022-10-22 01:36 | disposition home or self-care (01) ==
LOC: M ED 17:39
DX: G43.909 Migraine, unspecified, not intractable, without status migrainosus (principal); L21.9 Seborrheic dermatitis, unspecified; M32.9 Systemic lupus erythematosus, unspecified; E11.9 Type 2 diabetes mellitus without complications; Z91.040 Latex allergy status; Z91.041 Radiographic dye allergy status; Z79.810 Long term (current) use of selective estrogen receptor modulators (SERMs); Z79.811 Long term (current) use of aromatase inhibitors; Z79.02 Long term (current) use of antithrombotics/antiplatelets; Z79.899 Other long term (current) drug therapy
CPT/HCPCS: 70450; 80047; 80048; 85025; 85652; 86140; 96361; 96374; 99284; J1100; J1200; J2765

== ENCOUNTER → 2023-05-04 | Outpatient (CLI) | payer MEDICARE, OTHER ==
[~2023-05-04] MED LIST changes: -LEFL1TAB4 PO; +LEFL20TA15 PO; +LORA-1041 PO; -LORA-674 PO
== END ==
LOC: M RAD 09:24
PROVIDERS: ATTEND Internal Medicine
DX: M25.50 Pain in unspecified joint (principal)

== ENCOUNTER → 2023-05-06 | Outpatient (REF) | payer MEDICARE, MEDICAID ==
[2023-05-06 11:39] LABS: BASO % 0.7 % (0.0-1.0); EOS # 0.2 10^3/uL (0.0-0.5); EOS % 3.6 % (0.0-3.0); HEMATOCRIT 38.5 % (36.0-47.0); HEMOGLOBIN 12.4 g/dl (12.0-15.5); LYMPH # 1.3 10^3/uL (1.5-5.0); LYMPH % 30.5 % (24.0-44.0); MEAN CORPUSCULAR HGB CONC 32.2 g/dl (32.0-36.5); MEAN CORPUSCULAR VOLUME 99.2 fl (80.0-96.0); MONO # 0.5 10^3/uL (0.0-0.8); MONO % 10.2 % (2.0-8.0); NEUTROPHILS # 2.4 10^3/uL (1.5-8.5); NEUTROPHILS % 54.8 % (36.0-66.0); PLATELET COUNT, AUTOMATED 251 10^3/uL (150-450); RED BLOOD COUNT 3.88 10^6/uL (4.00-5.40); WHITE BLOOD COUNT 4.4 10^3/uL (4.0-10.0)
[2023-05-06 11:40] LABS: APPEARANCE, URINE CLEAR (CLEAR); BACTERIA, URINE AUTO 1+ (NEGATIVE); BILIRUBIN, URINE AUTO NEGATIVE (NEGATIVE); BLOOD, URINE BLOOD NEGATIVE (NEGATIVE); COLOR, URINE STRAW (YELLOW); GLUCOSE, URINE (UA) AUTO NEGATIVE (NEGATIVE); KETONE, URINE AUTO NEGATIVE (NEGATIVE); LEUKOCYTE ESTERASE, URINE AUTO 2+ (NEGATIVE); MUCUS, URINE SMALL (NEGATIVE); NITRITE, URINE AUTO NEGATIVE (NEGATIVE); PROTEIN, URINE AUTO NEGATIVE (NEGATIVE); RBC, URINE AUTO 0 /HPF (0-3); SPECIFIC GRAVITY URINE AUTO 1.002 (1.002-1.035); SQUAMOUS EPITHELIAL CELL UR AU 1 /HPF (0-6); UROBILINOGEN, URINE AUTO 0.2 mg/dL (0.0-2.0); WBC, URINE AUTO 4 /HPF (0-3)
[2023-05-06 11:46] LABS: ERYTHROCYTE SEDIMENTATION RATE 20 mm/hr (0-30)
[2023-05-06 12:10] LABS: CREATININE,RANDOM URINE 15.4 MG/DL
[2023-05-06 12:14] LABS: HEPATITIS B SURFACE ANTIBODY POSITIVE (POSITIVE)
[2023-05-06 12:16] LABS: COMPLEMENT C3 147.4 MG/DL (90.0-170.0)
[2023-05-06 12:17] LABS: C REACTIVE PROTEIN QUANTITATIV < 0.40 MG/DL (<1.0); COMPLEMENT C4 45.6 MG/DL (12-36)
[2023-05-06 12:18] LABS: ALBUMIN 3.8 G/DL (3.2-5.2); ALKALINE PHOSPHATASE 88 U/L (46-116); ALT/SGPT 31 U/L (7.0-40); AST/SGOT 24 U/L (<34); BILIRUBIN,DIRECT 0.1 MG/DL (<0.4); BILIRUBIN,TOTAL 0.3 MG/DL (0.3-1.2); BLOOD UREA NITROGEN 19 MG/DL (9-23); CALCIUM LEVEL 8.8 MG/DL (8.5-10.1); CARBON DIOXIDE LEVEL 24 MMOL/L (20-31); CHLORIDE LEVEL 108 MMOL/L (98-107); CREATININE FOR GFR 1.09 MG/DL (0.55-1.30); GLOMERULAR FILTRATION RATE > 60.0 (>51); GLUCOSE, FASTING 99 MG/DL (60-100); POTASSIUM SERUM 3.7 MMOL/L (3.5-5.1); SODIUM LEVEL 139 MMOL/L (136-145); TOTAL 25(OH) VITAMIN D 82.3 NG/ML (20.0-100.0); TOTAL PROTEIN 7.3 G/DL (5.7-8.2)
[2023-05-06 12:31] LABS: TOTAL PROTEIN,RANDOM URINE < 6.0 MG/DL (0.0-14.0)
[2023-05-06 12:48] LABS: HEPATITIS C VIRUS ABY INDEX 0.06 INDEX (<0.8)
== END ==
LOC: M SFHCRHEU 08:15
PROVIDERS: ATTEND Internal Medicine
DX: Z79.899 Other long term (current) drug therapy (principal); R76.8 Other specified abnormal immunological findings in serum; Z11.59 Encounter for screening for other viral diseases; M25.50 Pain in unspecified joint; Z11.3 Encounter for screening for infections with a predominantly sexual mode of transmission; Z72.89 Other problems related to lifestyle; R68.2 Dry mouth, unspecified

== ENCOUNTER → 2023-07-07 | Outpatient (REF) | payer MEDICARE, OTHER, MEDICAID | LOC: M LAB REF 17:19 | PROVIDERS: ATTEND Otolaryngology | DX: R68.2 Dry mouth, unspecified (principal) ==

== ENCOUNTER → 2023-09-02 | Outpatient (CLI) | payer MEDICARE, OTHER | LOC: M WHC 10:13 | PROVIDERS: ATTEND Physician Assistant | DX: Z12.31 Encounter for screening mammogram for malignant neoplasm of breast (principal) ==

== ENCOUNTER → 2023-09-30 | Outpatient (CLI) | payer MEDICARE, OTHER, MEDICAID ==
[~2023-09-30] MED LIST changes: +AMIT10TA7 PO
[2023-09-30 12:27] LABS: BASO % 0.9 % (0.0-1.0); EOS # 0.1 10^3/uL (0.0-0.5); HEMATOCRIT 39.9 % (36.0-47.0); HEMOGLOBIN 13.3 g/dl (12.0-15.5); LYMPH # 1.4 10^3/uL (1.5-5.0); LYMPH % 33.3 % (24.0-44.0); MEAN CORPUSCULAR HEMOGLOBIN 32.1 pg (27.0-33.0); MEAN CORPUSCULAR HGB CONC 33.3 g/dl (32.0-36.5); MEAN CORPUSCULAR VOLUME 96.4 fl (80.0-96.0); MONO # 0.6 10^3/uL (0.0-0.8); MONO % 14.5 % (2.0-8.0); NEUTROPHILS # 2.1 10^3/uL (1.5-8.5); NEUTROPHILS % 48.1 % (36.0-66.0); PLATELET COUNT, AUTOMATED 255 10^3/uL (150-450); RED BLOOD COUNT 4.14 10^6/uL (4.00-5.40); WHITE BLOOD COUNT 4.3 10^3/uL (4.0-10.0)
[2023-09-30 12:43] LABS: ERYTHROCYTE SEDIMENTATION RATE 11 mm/hr (0-30)
[2023-09-30 12:52] LABS: C REACTIVE PROTEIN QUANTITATIV < 0.40 MG/DL (<1.0)
[2023-09-30 12:54] LABS: ALBUMIN 4.3 G/DL (3.2-5.2); ALKALINE PHOSPHATASE 94 U/L (46-116); ALT/SGPT 34 U/L (7.0-40); AST/SGOT 37 U/L (<34); BILIRUBIN,DIRECT 0.2 MG/DL (<0.4); BILIRUBIN,TOTAL 0.5 MG/DL (0.3-1.2); BLOOD UREA NITROGEN 13 MG/DL (9-23); CALCIUM LEVEL 9.9 MG/DL (8.5-10.1); CARBON DIOXIDE LEVEL 24 MMOL/L (20-31); CHLORIDE LEVEL 105 MMOL/L (98-107); CREATININE FOR GFR 1.16 MG/DL (0.55-1.30); GLOMERULAR FILTRATION RATE > 60.0 (>51); GLUCOSE, FASTING 106 MG/DL (60-100); POTASSIUM SERUM 4.3 MMOL/L (3.5-5.1); SODIUM LEVEL 137 MMOL/L (136-145); TOTAL PROTEIN 7.4 G/DL (5.7-8.2)
== END ==
LOC: M LAB 11:56
PROVIDERS: ATTEND Internal Medicine
DX: M35.00 Sjogren syndrome, unspecified (principal)

== ENCOUNTER 2023-10-10 11:14 | Emergency (ER) | payer MEDICARE, MEDICAID ==
[~2023-10-10] VITALS: Ht 157.5 cm; Wt 57.4 kg
[~2023-10-10 11:14] MED LIST changes: -AMIT10TA7 PO
[2023-10-10 16:12] LABS: HEMATOCRIT 40.5 % (36.0-47.0); HEMOGLOBIN 13.6 g/dl (12.0-15.5); MEAN CORPUSCULAR HEMOGLOBIN 32.3 pg (27.0-33.0); MEAN CORPUSCULAR HGB CONC 33.6 g/dl (32.0-36.5); MEAN CORPUSCULAR VOLUME 96.2 fl (80.0-96.0); PLATELET COUNT, AUTOMATED 284 10^3/uL (150-450); RED BLOOD COUNT 4.21 10^6/uL (4.00-5.40); WHITE BLOOD COUNT 5.4 10^3/uL (4.0-10.0)
[2023-10-10 16:44] LABS: BLOOD UREA NITROGEN 13 MG/DL (9-23); CALCIUM LEVEL 10.2 MG/DL (8.5-10.1); CARBON DIOXIDE LEVEL 27 MMOL/L (20-31); CHLORIDE LEVEL 107 MMOL/L (98-107); CREATININE FOR GFR 1.04 MG/DL (0.55-1.30); GLOMERULAR FILTRATION RATE > 60.0 (>51); GLUCOSE, FASTING 102 MG/DL (60-100); POTASSIUM SERUM 4.5 MMOL/L (3.5-5.1); SODIUM LEVEL 137 MMOL/L (136-145)
[2023-10-10] MEDS: METOCLOPRAMIDE INJ 10MG/2ML VIAL IV ONE (16:50)
[2023-10-10] MEDS: diphenhydrAMINE 50MG/ML VIAL IV ONE (16:50)
[2023-10-10] MEDS: NS 1,000 ML IV ONE (16:51)
[2023-10-10] MEDS: KETOROLAC 30 MG/ML 1ML VIAL IV ONE (16:57)
[2023-10-10] MEDS: ACETAMINOPHEN 500 MG TAB PO ONE (16:58)
[2023-10-10] MEDS ORDERED: ISOVUE-370 76% 100ML VIAL As Ordered ONE (18:13)
[2023-10-10 19:42] VITALS: BP 123/66; TEMP 96.7; O2SAT 98
[2023-10-10] MEDS ORDERED: AMIT10TA7 PO (20:00)
== END 2023-10-10 20:13 | disposition home or self-care (01) ==
LOC: M ED 11:14
DX: G43.909 Migraine, unspecified, not intractable, without status migrainosus (principal); I67.1 Cerebral aneurysm, nonruptured; E11.9 Type 2 diabetes mellitus without complications; I10 Essential (primary) hypertension; D64.9 Anemia, unspecified; Z91.040 Latex allergy status; Z91.041 Radiographic dye allergy status; Z79.02 Long term (current) use of antithrombotics/antiplatelets; Z79.811 Long term (current) use of aromatase inhibitors; Z79.4 Long term (current) use of insulin; Z79.899 Other long term (current) drug therapy
CPT/HCPCS: 70450; 70496; 72125; 80048; 85027; 96361; 96374; 96375; 99284; J1100; J1200; J1885; J2765; Q9967

== ENCOUNTER → 2023-12-22 | Outpatient (CLI) | payer MEDICAID, MEDICARE ==
[~2023-12-22] MED LIST changes: +AMIT10TA7 PO
[2023-12-22 12:10] LABS: BASO % 0.6 % (0.0-1.0); EOS # 0.1 10^3/uL (0.0-0.5); EOS % 1.8 % (0.0-3.0); HEMATOCRIT 38.1 % (36.0-47.0); HEMOGLOBIN 12.5 g/dl (12.0-15.5); LYMPH # 0.9 10^3/uL (1.5-5.0); MEAN CORPUSCULAR HEMOGLOBIN 32.1 pg (27.0-33.0); MEAN CORPUSCULAR HGB CONC 32.8 g/dl (32.0-36.5); MEAN CORPUSCULAR VOLUME 97.7 fl (80.0-96.0); MONO # 0.5 10^3/uL (0.0-0.8); MONO % 10.6 % (2.0-8.0); NEUTROPHILS # 3.5 10^3/uL (1.5-8.5); NEUTROPHILS % 68.6 % (36.0-66.0); PLATELET COUNT, AUTOMATED 286 10^3/uL (150-450); WHITE BLOOD COUNT 5.1 10^3/uL (4.0-10.0)
[2023-12-22 12:25] LABS: ERYTHROCYTE SEDIMENTATION RATE 8 mm/hr (0-30)
[2023-12-22 12:43] LABS: C REACTIVE PROTEIN QUANTITATIV < 0.40 MG/DL (<1.0)
[2023-12-22 12:45] LABS: ALBUMIN 4.1 G/DL (3.2-5.2); ALKALINE PHOSPHATASE 96 U/L (46-116); ALT/SGPT 27 U/L (7.0-40); AST/SGOT 25 U/L (<34); BILIRUBIN,DIRECT 0.2 MG/DL (<0.4); BILIRUBIN,TOTAL 0.5 MG/DL (0.3-1.2); BLOOD UREA NITROGEN 17 MG/DL (9-23); CALCIUM LEVEL 10.3 MG/DL (8.5-10.1); CARBON DIOXIDE LEVEL 25 MMOL/L (20-31); CHLORIDE LEVEL 110 MMOL/L (98-107); CREATININE FOR GFR 1.01 MG/DL (0.55-1.30); GLOMERULAR FILTRATION RATE > 60.0 (>51); GLUCOSE, FASTING 84 MG/DL (60-100); POTASSIUM SERUM 3.9 MMOL/L (3.5-5.1); SODIUM LEVEL 141 MMOL/L (136-145); TOTAL PROTEIN 7.4 G/DL (5.7-8.2)
== END ==
LOC: M LAB 11:09
PROVIDERS: ATTEND Internal Medicine
DX: M35.00 Sjogren syndrome, unspecified (principal)

== ENCOUNTER → 2023-12-23 | Outpatient (CLI) | payer MEDICARE ==
[2023-12-23 19:34] LABS: IMMUNOGLOBULIN A 221.6 MG/DL (40-350)
[2023-12-23 19:35] LABS: FREE T4 1.02 NG/DL (0.89-1.76)
[2023-12-23 19:36] LABS: THYROID STIMULATING HORMONE 0.871 uIU/ML (0.55-4.78)
== END ==
LOC: M LRY 13:53
PROVIDERS: ATTEND Physician Assistant Medical
DX: R19.7 Diarrhea, unspecified (principal)

== ENCOUNTER → 2023-12-26 | Outpatient (REF) | payer MEDICARE | LOC: M LAB REF 15:09 | PROVIDERS: ATTEND Physician Assistant Medical | DX: R19.7 Diarrhea, unspecified (principal) ==

== ENCOUNTER 2024-02-02 09:17 | Day surgery (SDC) | payer MEDICARE ==
[~2024-02-02] VITALS: Ht 147.3 cm; Wt 50.3 kg
[~2024-02-02 09:17] MED LIST changes: +CARB15DR64 OP; -LUBR0.5D OP
[2024-02-02] MEDS ORDERED: fentaNYL 100 MCG/2 ML INJECTION As Ordered ONE (12:33)
[2024-02-02] MEDS ORDERED: propofoL 200 MG/20 ML VIAL As Ordered ONE (13:13)
[2024-02-02] MEDS ORDERED: LIDOCAINE 2% 100MG/5ML SDV (FOR ANES.) As Ordered ONE (13:13)
[2024-02-02 13:16] VITALS: TEMP 96.8
[2024-02-02 13:56] VITALS: BP 93/59; O2SAT 100
== END 2024-02-02 14:04 | disposition home or self-care (01) ==
LOC: M OPP 09:17
PROVIDERS: ATTEND Internal Medicine Gastroenterology
DX: R19.7 Diarrhea, unspecified (principal); K63.5 Polyp of colon; D21.4 Benign neoplasm of connective and other soft tissue of abdomen; K59.00 Constipation, unspecified; K64.8 Other hemorrhoids; E11.43 Type 2 diabetes mellitus with diabetic autonomic (poly)neuropathy; K31.84 Gastroparesis; K21.9 Gastro-esophageal reflux disease without esophagitis; E11.40 Type 2 diabetes mellitus with diabetic neuropathy, unspecified; I10 Essential (primary) hypertension; M35.00 Sjogren syndrome, unspecified; E78.00 Pure hypercholesterolemia, unspecified; G43.909 Migraine, unspecified, not intractable, without status migrainosus; Z79.899 Other long term (current) drug therapy; Z79.1 Long term (current) use of non-steroidal anti-inflammatories (NSAID); R32 Unspecified urinary incontinence; Z90.710 Acquired absence of both cervix and uterus; Z91.041 Radiographic dye allergy status
CPT/HCPCS: 43235; 45380; 45385; 88305; J3010

== ENCOUNTER → 2024-02-14 | Outpatient (CLI) | payer MEDICARE | LOC: M RAD 09:56 | PROVIDERS: ATTEND Internal Medicine | DX: E04.9 Nontoxic goiter, unspecified (principal) ==

== ENCOUNTER → 2024-03-01 | Outpatient (REF) | payer MEDICARE, MEDICAID ==
[2024-03-01 19:03] LABS: BLOOD UREA NITROGEN 22 MG/DL (9-23); CALCIUM LEVEL 10.5 MG/DL (8.5-10.1); CARBON DIOXIDE LEVEL 27 MMOL/L (20-31); CHLORIDE LEVEL 109 MMOL/L (98-107); CREATININE FOR GFR 1.02 MG/DL (0.55-1.30); GLOMERULAR FILTRATION RATE > 60.0 (>51); GLUCOSE, FASTING 82 MG/DL (60-100); POTASSIUM SERUM 4.6 MMOL/L (3.5-5.1); SODIUM LEVEL 144 MMOL/L (136-145)
[2024-03-01 19:04] LABS: TOTAL 25(OH) VITAMIN D 85.4 NG/ML (20.0-100.0)
== END ==
LOC: M SFHCRHEU 12:31
PROVIDERS: ATTEND Internal Medicine
DX: E67.3 Hypervitaminosis D (principal); M35.00 Sjogren syndrome, unspecified

== ENCOUNTER → 2024-04-11 | Outpatient (CLI) | payer MEDICARE, OTHER | LOC: M CARPUL 13:14 | PROVIDERS: ATTEND Internal Medicine | DX: M35.00 Sjogren syndrome, unspecified (principal) ==

== ENCOUNTER → 2024-05-30 | Outpatient (CLI) | payer MEDICARE, OTHER | LOC: M CARPUL 08:48 | PROVIDERS: ATTEND Internal Medicine | DX: M35.00 Sjogren syndrome, unspecified (principal) ==

== ENCOUNTER → 2024-06-11 | Outpatient (CLI) | payer MEDICARE, OTHER ==
[~2024-06-11] MED LIST changes: +ISOVUE-370 76% 100ML VIAL As Ordered ONE
== END ==
LOC: M RAD 08:06
PROVIDERS: ATTEND Physician Assistant Medical
DX: R63.4 Abnormal weight loss (principal); R10.84 Generalized abdominal pain; R18.8 Other ascites
CPT/HCPCS: 74177; Q9967

== ENCOUNTER → 2024-06-22 | Outpatient (REF) | payer MEDICARE, OTHER ==
[~2024-06-22] MED LIST changes: -ISOVUE-370 76% 100ML VIAL As Ordered ONE; +LIFI1DRO4 OP; -XIID5DRO OP
== END ==
LOC: M SFHCDERM 17:25
PROVIDERS: ATTEND Nurse Practitioner Family
DX: D48.9 Neoplasm of uncertain behavior, unspecified (principal)

== ENCOUNTER → 2024-10-09 | Outpatient (CLI) | payer MEDICARE, OTHER ==
[~2024-10-09] MED LIST changes: +AMIT10TA11 PO; -AMIT10TA7 PO; +LISI40TA10 PO; -LISI40TA4 PO
== END ==
LOC: M WHC 11:37
PROVIDERS: ATTEND Internal Medicine
DX: Z12.31 Encounter for screening mammogram for malignant neoplasm of breast (principal); R92.333 Mammographic heterogeneous density, bilateral breasts

== ENCOUNTER → 2024-11-14 | Outpatient (CLI) | payer MEDICARE, OTHER | LOC: M LAB 10:49 | PROVIDERS: ATTEND Internal Medicine Gastroenterology | DX: R19.7 Diarrhea, unspecified (principal); R63.4 Abnormal weight loss; D3A.8 Other benign neuroendocrine tumors ==